=== PATIENT | male | born 1945 ===

== ENCOUNTER 2025-05-11 15:51 | Outpatient (AMB) | payer MEDICARE, SELFPAY ==
--- OUTSIDE RECORDS SUMMARY | 2025-05-11 16:13 | XMS_ITS | Encounter Summary ---
Author Organization [facility] Address [address] [facility] [address] [place] [address] Phone Care Team Providers Care Storm Chaser Name Role Phone Tracy John WELDING MACHINE OPERATOR GAS METAL ARC Primary Care Provider [phone] Encounter Details Date Type Department Care Team (Late Contact Info) Description 01/09/2023 Documentation Only [facility] [address] [facility] [address] [place] [phone] [place], [place] Social History Tobacco Use Types Packs/Day Years Used Date Smoking Tobacco: Never Smokeless Tobacco: Never Alcohol Use Standard Drinks/Week Comments Yes 0 (1 standard drink = 0.6 oz pure alcohol) Alcoholic Drinks/day: Occasional social drink Sex and Gender Information Value Date Recorded Sex Assigned at Male 08/29/2021 11:30 AM EST Legal Sex Male 5:19 PM EST Gender Identity Male 08/29/2021 11:30 AM EST Sexual Orientation Straight 08/29/2021 11 :30 AM EST COVID-19 Exposure Response Date Recorded In the last 10 days, have yo u been in contact with someone who was confirmed or suspected to have Coronavirus/COVID-19? No / Unsure 01/08/2023 6:17 PM EDT documented as of this encounter Plan of Treatment Upcoming Encounters Date Type Department Care Team (Late st Contact Info) Description 06/10/2025 1:15 PM EDT Office Visit [facility] [address] [facility] [address] [place] [phone] Pepper Nielsen ARNP [address] [phone] documented as of this encounter Visit Diagnoses Not on filedocumented in this encounter Care Teams Storm Chaser Relationship Specialty Start Date End Date Tracy John NP [address] [place] [address] PCP - General Nurse Practitioner 12/05/23 documented as of this encounter
--- OUTSIDE RECORDS SUMMARY | 2025-05-11 16:13 | XMS_ITS | Clinical Summary ---
Author Organization [facility] Address [address] [place] [address] Phone Care Team Providers Care Lehr Loader Name Role Phone Tracy John Primary Care Provider Allergies No known active allergies Social History Tobacco Use Types Packs/Day Years Used Date Smoking Tobacco: Never Assessed Sex and Gender Information Value Date Recorded Sex Assigned at Not on file Legal Sex Male 8:49 AM EDT Gender Identity Not on file Sexual Orientation Not on file Last Filed Vital Signs Vital Sign Reading Time Taken Comments Blood Pressure - - Pulse - - Temperature - - Respiratory Rate - - Oxygen Saturation - - Inhaled Oxygen Concentration - - Weight 77.7 kg (171 lb 3.2 oz) 01/19/2025 2:23 P M EDT Height 170.2 cm (5' 7 ) 01/19/2025 2:23 PM EDT Body Mass Index 26.81 01/19/2025 2:23 PM EDT Plan of Treatment Health Maintenance Due Date Last Done Comments Depression Screening 09/24/2024 COVID-19 Vaccine ( season) 2024 06/02/2024, 12/03/2023, 06/30/2023, Additional history exists Cholesterol Screening (Lipid Panel) 12/12/2024 Falls Risk Assessment 12/12/2024 Medicare Annual Wellness Visit 12/12/2024 Social Influencers of Health Screening 12/12/2024 Hypertension/CHF/CAD Annual BMP Blood Test 01/19/2025 Influenza Vaccine (#1) 2025 , 06/30/2023, 06/27/2022, Additional history exists DTaP,Tdap,and Td Vaccines (3 - Td or Tdap) 11/16/2025 11/16/2015, 09/12/2000 Pneumococcal Vaccine: 50+ Years Completed 03/17/2015, 11/22/2010 Zoster Vaccines Completed 07/08/2019, 02/11/2018 RSV Immunization Adult Patients Completed 07/07/2023 HIB Vaccines Aged Out No longer eligi ble based on patient's age to complete this topic HPV Vaccines Aged Out No longer eligi ble based on patient's age to complete this topic Hepatitis A Vaccines Aged Out No long er eligible based on patient's age to complete this topic Hepatitis B Vaccines Aged Out No long er eligible based on patient's age to complete this topic IPV Vaccines Aged Out No longer eligi ble based on patient's age to complete this topic MMR Vaccines Aged Out No longer eligi ble based on patient's age to complete this topic Meningococcal ACWY Vaccine Aged Out N o longer eligible based on patient's age to complete this topic Meningococcal B Vaccine Aged Out No l onger eligible based on patient's age to complete this topic RSV Immunization Patients Under 20 months Aged Out No longer eligible based on patient's age to complete this topic Varicella Vaccines Aged Out No longer eligible based on patient's age to complete this topic Insurance MEDICARE [facility] Care Teams Lehr Loader Relationship Specialty Start Date End Date Tracy John [address] [place] [address] PCP - General 12/18/24
--- OUTSIDE RECORDS SUMMARY | 2025-05-11 16:13 | XMS_ITS | Clinical Summary ---
Author Organization [facility] Address [address] [place] [phone] Phone Care Team Providers Care International Relations Teacher Name Role Phone Unknown, Unknown Primary Care Provider Aleksey matta Social History Tobacco Use Types Packs/Day Years Used Date Smoking Tobacco: Never Assessed Sex and Gender Information Value Date Recorded Sex Assigned at Not on file Legal Sex Male 5:41 PM EST Gender Identity Not on file Sexual Orientation Not on file Plan of Treatment Not on file Medical Devices Not on file [place] [id number] [employer] MEDEX SUPPLEMENT MEDICARE PART A & B [employer] MEDEX SUPPLEMENT MEDICARE PART A & B [employer] MEDEX SUPPLEMENT MEDICARE PART A & B [employer] MEDEX SUPPLEMENT MEDICARE PART A & B [employer] MEDEX SUPPLEMENT MEDICARE PART A & B [employer] MEDEX SUPPLEMENT MEDICARE PART A & B [employer] MEDEX SUPPLEMENT MEDICARE PART A & B [employer] MEDEX SUPPLEMENT MEDICARE PART A & B [employer] MEDEX SUPPLEMENT Care Teams International Relations Teacher Relationship Specialty Start Date End Date Unknown, Unknown, PCP - General 02/14/16 Additional Source Comments The information contained in this document represents components of the legal health record. It is not the complete legal health record.[facility]
== END 2025-05-11 15:53 | disposition home or self-care (01) ==
LOC: HO.HMGAL 15:51
PROVIDERS: PCP Internal Medicine; Visit Provider Registered Nurse Emergency
DX: J30.89 Other allergic rhinitis (principal)
CPT/HCPCS: 95117; 95165

== ENCOUNTER 2025-05-18 14:47 | Outpatient (AMB) | payer MEDICARE, SELFPAY ==
--- OUTSIDE RECORDS SUMMARY | 2025-05-18 16:28 | XMS_ITS | Encounter Summary ---
Author Organization [facility] Address [address] [facility] [address] [place] [address] Phone Care Team Providers Care Indian Trader Name Role Phone Tracy John TANK CAR REPAIRER Primary Care Provider [phone] Encounter Details Date Type Department Care Team (Late Contact Info) Description 03/24/2021 Orders Only [facility] [address] [facility] [address] [place] [phone] Caren Santos MD Stage 3a chronic kidney disease (HCC); Hypertensive disorder; Hypophosphatemia; Cyst of kidney Social History Tobacco Use Types Packs/Day Years Used Date Smoking Tobacco: Never Alcohol Use Standard Drinks/Week Comments [...] Exposure Response Date Recorded In the last month, have you been in contact with someone who was confirmed or suspected to have Coronavirus / COVID-19? No / Unsure 03/09/2021 12:13 PM EDT documented as of this encounter Plan of Treatment Upcoming Encounters Date Type Department Care Team (Late st Contact Info) Description 06/10/2025 1:15 PM EDT Office Visit [facility] [address] [facility] [address] [place] [phone] Pepper Nielsen ARNP [address] [phone] documented as of this encounter Visit Diagnoses Diagnosis Stage 3a chronic kidney disease (HCC) Hypertensive disorder Hypophosphatemia Cyst of kidney documented in this encounter Care Teams Indian Trader Relationship Specialty Start Date End Date Tracy John NP [address] [place] [address] PCP - General Nurse Practitioner 12/05/23 documented as of this encounter
--- OUTSIDE RECORDS SUMMARY | 2025-05-18 16:28 | XMS_ITS | Clinical Summary ---
Author Organization [facility] Address [address] [place] [address] Phone Care Team Providers Care Skin Specialist Name Role Phone Unknown, Unknown Primary Care [...] [place] [id number] [employer] MEDEX SUPPLEMENT MEDICARE PART A & B [employer] MEDEX SUPPLEMENT MEDICARE PART A & B [employer] MEDEX SUPPLEMENT MEDICARE PART A & B [employer] MEDEX SUPPLEMENT MEDICARE PART A & B [employer] MEDEX SUPPLEMENT MEDICARE PART A & B [employer] MEDEX SUPPLEMENT MEDICARE PART A & B [employer] MEDEX SUPPLEMENT MEDICARE PART A & B [employer] MEDEX SUPPLEMENT MEDICARE PART A & B [employer] MEDEX SUPPLEMENT Care Teams Skin Specialist Relationship Specialty Start Date End Date Unknown, Unknown, PCP - General 02/14/16 Additional Source Comments The information contained in this document represents components of the legal health record. It is not the complete legal health record.[facility]
--- OUTSIDE RECORDS SUMMARY | 2025-05-18 16:28 | XMS_ITS | Clinical Summary ---
Author Organization [facility] Address [address] [place] [address] Phone Care Team Providers Care Climatology Professor Name Role Phone Tracy John Primary Care [...] age to complete this topic Insurance MEDICARE [facility] Care Teams Climatology Professor Relationship Specialty Start Date End Date Tracy John [address] [place] [address] PCP - General 12/18/24
--- OUTSIDE RECORDS SUMMARY | 2025-05-18 16:28 | XMS_ITS | Encounter Summary ---
Author Organization [facility] Address [address] [facility] [address] [place] [address] Phone Care Team Providers Care Aerospace Assembler Name Role Phone Tracy John MECHANICAL ASSEMBLER Primary Care Provider [phone] Encounter Details Date Type Department Care Team (Late Contact Info) Description 01/09/2023 Documentation Only [facility] [address] [facility] [address] [place] [phone] [place], [place] Social History Tobacco Use Types Packs/Day [...] Visit [facility] [address] [facility] [address] [place] [phone] Pepper Nielsen ARNP [address] [phone] documented as of this encounter Visit Diagnoses Not on filedocumented in this encounter Care Teams Aerospace Assembler Relationship Specialty Start Date End Date Tracy John NP [address] [place] [address] PCP - General Nurse Practitioner 12/05/23 documented as of this encounter
--- OUTSIDE RECORDS SUMMARY | 2025-05-18 16:28 | XMS_ITS | Encounter Summary ---
Author Organization [facility] Address [address] [address] Phone Care Team Providers Care Skein Bander Name Role Phone Tracy John SOCK TURNER Primary Care Provider [phone] Encounter Details Date Type Department Care Team (Late Contact Info) Description 04/15/2025 Office Communication [facility] [address] [phone] Raymond Lynch [address] [phone] Social History Tobacco Use Types Packs/Day Years [...] Orientation Straight 08/29/2021 11 :30 AM EST documented as of this encounter Plan of Treatment Upcoming Encounters Date Type Department Care Team (Late st Contact Info) Description 06/10/2025 1:15 PM EDT Office Visit [facility]. [address] [phone] Pepper Nielsen ARNP [address] [address] documented as of this encounter Visit Diagnoses Not on filedocumented in this encounter Care Teams Skein Bander Relationship Specialty Start Date End Date Tracy John NP [address] [place] [address] PCP - General Nurse Practitioner 12/05/23 documented as of this encounter
--- OUTSIDE RECORDS SUMMARY | 2025-05-18 16:28 | XMS_ITS | Clinical Summary ---
Author Organization [facility] Address [address] [address] Phone Care Team Providers Care Automotive Exhaust Emissions Technician Name Role Phone AlvaroTracy cooper IRONING PLEATER Primary Care Provider [phone] Allergies No known active allergies Medications Multiple Vitamins-Minera ls (CENTRUM SILVER 50+MEN PO) Take 1 tablet by mouth 1 (one) time each day Active acetaminophen (TYLENOL) 500 MG tablet Take 2 tablets by mouth every morning Active finasteride (PROSCAR) 5 MG tablet Take 5 mg by mouth daily 1 Active irbesartan-hydr oCHLOROthiazide (AVALIDE) 300-12.5 MG per tablet Take 1 tablet by mouth 1 (one) time each day 1 Active pravastatin (PRAVACHOL) 20 MG tablet Take 20 mg by mouth daily 0 Active tamsulosin (FLOMAX) 0.4 MG 24 hr capsule Take 0.4 mg by mouth 1 (one) time each day 1 Active omega-3 (FISH OIL) 1000 MG capsule 1 Active sodium chloride (OCEAN) 0.65 % nasal spray Administer 1 spray into each nostril if needed for congestion Active famotidine (PEPCID) 20 MG tablet Take 1 tablet (20 mg total) by mouth in the morning and 1 tablet (20 mg total) in the evening. 60 tablet 11 4 Active amLODIPine (NORVASC) 10 MG tabletIndicatio ns:Stage 3a chronic kidney disease (HCC),Hypertens ion Take 1 tablet (10 mg total) by mouth 1 (one) time each day 90 tablet 3 5 12/09/19 26 Active Active Problems Problem Noted Date Diagnosed Date Chronic headache disorder 04/20/2022 Dyspepsia 04/20/2022 Hypophosphatemia 11/07/2020 Cyst of kidney 11/03/2020 Hypertension 11/03/2020 Aortic valve stenosis 11/03/2020 Hyperlipidemia 06/18/2014 Essential hypertension 12/30/2012 Stage 3a chronic kidney disease 09/01/2010 Overview (12/07/2022): Per chart review meets GFR criteria Benign prostatic hyperplasia 12/04/2008 Encounters Date Type Department Care Team Description 04/24/2025 Orders Only [facility] [address] [place] [phone] Pepper Nielsen ARNP Stage 3a chronic kidney disease (HCC); Hypertension 04/15/2025 Office Communication [facility] [address] [phone] Raymond Lynch from Last 3 Months Immunizations Immunization Administration Dates Next Due DT 09/12/2000 Influenza Split High Dose Pr eservative Free IM 05/15/2020,06/30/2015 Influenza, Unspecified 06/27/2022,2020,06/13/2017,08/23,06/19/2015,07/17/2014,07/24/2013 ,06/15/2010,06/09/2009 Moderna SARS-COV-2 03/25/2022 Pfizer SARS-COV-2 06/20/2021,11/19/2020,10/30/19 Pneumococcal Conjugate 13-Valent 03/17/2015 Pneumococcal Polysaccharide 11/22/2010 SARS-CoV-2, Unspecified 06/27/2022 Shingrix 02/11/2018 Tdap 11/16/2015 Family History Medical History Relation Comments Cancer Father Gout Father Heart disease Mother Hypertension Mother Relation Status Comments Father Mother Social History Tobacco Use Types Packs/Day Years Used Date Smoking Tobacco: Never Smokeless Tobacco: Never Tobacco Cessation:Counseling Given: No Alcohol Use Standard Drinks/Week Comments Yes 0 (1 standard drink = 0.6 oz pure alcohol) Alcoholic Drinks/day: Occasional social drink Sex and Gender Information Value Date Recorded Sex Assigned at Male 08/29/2021 11:30 AM EST Legal Sex Male 5:19 PM EST Gender Identity Male 08/29/2021 11:30 AM EST Sexual Orientation Straight 08/29/2021 11 :30 AM EST Last Filed Vital Signs Vital Sign Reading Time Taken Comments Blood Pressure 130/62 12/08/2024 1:36 PM EDT Pulse 80 12/08/2024 1:36 PM EDT Temperature - - Respiratory Rate - - Oxygen Saturation 97% 05/29/2023 3:27 PM EDT Inhaled Oxygen Concentration - - Weight 77.1 kg (170 lb) 12/08/2024 1:36 PM EDT Height 172.7 cm (5' 8 ) 05/29/2023 3:27 PM EDT Body Mass Index 25.85 05/29/2023 3:27 PM EDT Plan of Treatment Upcoming Encounters Date Type Department Care Team (Late st Contact Info) Description 06/10/2025 1:15 PM EDT Office Visit [facility] [address] [phone] Pepper Nielsen ARNP [address] [phone] Health Maintenance Due Date Last Done Comments Influenza Vaccine (#1) 2025 2, 06/14/2021, 05/15/2020, Additional history exists Pneumococcal Vaccine: 50+ Years Completed 03/17/2015, 11/22/2010 Pneumococcal Vaccine: Peds (0 to 5 Years) and At-Risk Patients (6 to 49 Years) Discontinued 03/17/2015, 11/22/2010 Hepatitis B Vaccine Aged Out No longe r eligible based on patient's age to complete this topic Insurance [facility] Medicare [facility] Medicare Care Teams Automotive Exhaust Emissions Technician Relationship Specialty Start Date End Date Tracy John NP [address] [place] [address] PCP - General Nurse Practitioner 12/05/23
== END 2025-05-19 13:50 | disposition home or self-care (01) ==
PROVIDERS: PCP Internal Medicine; Visit Provider Registered Nurse Emergency
DX: J30.89 Other allergic rhinitis (principal)
CPT/HCPCS: 95117; 95165

== ENCOUNTER 2025-05-27 09:21 | Outpatient (AMB) | payer MEDICARE, SELFPAY ==
--- OUTSIDE RECORDS SUMMARY | 2025-05-25 23:59 | XMS_ITS | Continuity of Care Document ---
Author Organization [facility] Address [address] [facility] [place] [address]- Care Team Providers Care Crew Caller Name Role Phone Tracy John NP Primary Care Physician Encounter 05/18/25 - 05/25/25 [facility] [address] [facility] [facility], [address] [place] [address]- Attending Physician: Indio Gomez MD Admitting Physician: Indio Gomez MD Referring Physician: Indio Gomez MD Encounter Type: OutPatient One Time Allergies, Adverse Reactions, Alerts No Known Allergies Immunizations Given and Recorded Vaccine Date Status Refusal Reason influenza virus vaccine, inactivated 06/02/24 Todd rded influenza virus vaccine, inactivated 06/30/23 Todd rded influenza virus vaccine, inactivated 06/27/22 Todd rded influenza virus vaccine, inactivated 06/14/21 Todd rded influenza virus vaccine, inactivated 1 06/13/17 Gi nicholas influenza virus vaccine, inactivated 2 08/23/16 Gi nicholas influenza virus vaccine, inactivated 3 06/19/15 Re corded influenza virus vaccine, inactivated 4 07/17/14 Gi nicholas influenza virus vaccine, inactivated 5 07/24/13 Gi nicholas influenza virus vaccine, inactivated 07/10/12 Give n influenza virus vaccine, inactivated 06/29/11 Give n influenza virus vaccine, inactivated 6 06/15/10 Gi nicholas influenza virus vaccine, inactivated 7 06/09/09 Gi nicholas SARS-CoV-2(COVID-19)mRNA-LNP vac([id number]) 06/02/24 Recorded SARS-CoV-2(COVID-19)mRNA-LNP vac([id number]) 12/03/23 Recorded SARS-CoV-2(COVID-19)mRNA-LNP vac([id number]) 06/30/23 Recorded RSV vaccine preF3, recombinant 07/07/23 Recorded [id number] 12y+ bivalent booster vax 8 06/27/22 Recorded SARS-CoV-2 (COVID-19) mRNA-1273 vaccine 03/25/22 R ecorded SARS-CoV-2 (COVID-19) mRNA BNT-162b2 vac 06/20/21 Recorded SARS-CoV-2 (COVID-19) mRNA BNT-162b2 vac 11/19/20 Recorded SARS-CoV-2 (COVID-19) mRNA BNT-162b2 vac 10/30/20 Recorded Influenza Virus Vaccine (oldterm) 9 05/15/20 Recor ded Influenza Virus Vaccine (oldterm) 07/08/19 Recorde d zoster vaccine, inactivated 07/08/19 Recorded zoster vaccine, inactivated 02/11/18 Recorded tetanus/diphtheria/pertussis, acel(Tdap) 10 11/16/15 Given Fluzone (oldterm) 11 06/19/15 Recorded pneumococcal 13-valent vaccine 03/17/15 Given pneumococcal 23-valent vaccine 11/22/10 Given influ virus vac, H1N1, inactive(oldterm) 06/24/09 Given Influenza Inactive (IM) (oldterm) 06/24/09 Given Influenza Inactive (IM) (oldterm) 07/25/08 Given Influenza Inactive (IM) (oldterm) 08/30/07 Given diphtheria-tetanus toxoids (DT) 09/12/00 Given 1Result Comment: [facility] [phone] 2Result Comment: [08/24/2016] [facility] 3[facility] 4Result Comment: [facility]03/17/2015[facility] 5Admin Note: pharmacy 6Admin Note: VIS SHEET GIVEN 05/03/2010 7Admin Note: vis 05/04/09 8Result Comment: administered at [facility] 9Result Comment: Vishal 10Result Comment: [11/16/2015] [facility] 11Location History: [facility] Medications acetaminophen 500 mg oral tablet 2 tablet = 1,000 mg, By Mouth, Every 6 hours, 0 Refills, Maintenance, 06/28/18 1:47:55 PM EDT Start Date: 06/28/18 Status: Ordered Medication Dispense Status: Completed Total Allowed Fills: 1 Fills Dispensed: 0 amLODIPine 2.5 mg oral tablet 2.5 mg, 1, tablet, By Mouth, Daily, # 30 tablet, Refills 0, Maintenance, 10/16/18 1:54:53 PM EST Start Date: 10/16/18 Status: Ordered Medication Dispense Status: Completed Quantity: 30.0 Unit: tablet Total Allowed Fills: 1 Fills Dispensed: 0 betamethasone topical dipropionate 0.05% cream See Instructions, TOPICALLY 2 TIMES A DAY, # 45 Gm, 0 Refills, Maintenance, 03/02/25 7:52:00 AM EDT, [facility], 30, TOPICALLY 2 TIMES A DAY, 169, cm, 12/03/24 10:55:00 EDT, Height Start Date: 03/02/25 Status: Ordered Medication Dispense Status: Completed Quantity: 45.0 Unit: g Total Allowed Fills: 1 Fills Dispensed: 0 cetirizine 10 mg oral tablet 1 tablet = 10 mg, By Mouth, Daily, # 30 tablet, 0 Refills, Maintenance, 02/01/22 3:07:00 PM EDT, Tablet, Partial fill upon patient request if the prescription is for a schedule II opioid drug. Start Date: 02/01/22 Status: Ordered Medication Dispense Status: Completed Quantity: 30.0 Unit: tablet Total Allowed Fills: 1 Fills Dispensed: 0 famotidine 20 mg oral tablet Refills 0, Maintenance, 07/25/23 4:20:00 PM EDT, Partial fill upon patient request if the prescription is for a schedule II opioid drug. Start Date: 07/25/23 Status: Ordered Medication Dispense Status: Completed Total Allowed Fills: 1 Fills Dispensed: 0 finasteride 5 mg oral tablet 1 tablet = 5 mg, By Mouth, Daily, # 30 tablet, 0 Refills, Maintenance, 01/21/14 1:26:09 PM EDT, Tablet Start Date: 01/21/14 Status: Ordered Medication Dispense Status: Completed Quantity: 30.0 Unit: tablet Total Allowed Fills: 1 Fills Dispensed: 0 Fish Oil take, By Mouth, Daily, 0 Refills, Maintenance, 12/01/20 4:15:00 PM EST, Partial fill upon patient request if the prescription is for a schedule II opioid drug. Start Date: 12/01/20 Status: Ordered Medication Dispense Status: Completed Total Allowed Fills: 1 Fills Dispensed: 0 Flomax 0.4 mg oral capsule 0.4 mg, 1, capsule, By Mouth, Daily, (30 minutes after the same meal), # 30, 0 Refills Start Date: 12/04/08 Status: Ordered Medication Dispense Status: Completed Quantity: 30.0 Unit: Total Allowed Fills: 1 Fills Dispensed: 0 hydrochlorothiazide-irbesartan 12.5 mg-300 mg oral tablet 1 tablet, By Mouth, Daily, # 90 tablet, 1 Refills, Maintenance, 01/26/25 9:37:00 PM EDT, [facility]ORE 61034, 90, TAKE 1 TABLET BY MOUTH EVERY DAY, 169, cm, 12/03/24 10:55:00 EDT, Height Start Date: 01/26/25 Status: Ordered Medication Dispense Status: Completed Quantity: 90.0 Unit: tablet Total Allowed Fills: 1 Fills Dispensed: 0 Multivitamin By Mouth, Daily, 0 Refills, Maintenance, 05/26/15 8:44:13 AM EDT Start Date: 05/26/15 Status: Ordered Medication Dispense Status: Completed Total Allowed Fills: 1 Fills Dispensed: 0 pravastatin 20 mg oral tablet 1, tablet, By Mouth, Daily, # 90 tablet, Refills 1, Tot. Refills 1, Maintenance, 02/24/25 9:45:00 PM EDT, Route to Pharmacy Electronically, [facility]/pharmacy #[id number], 169, cm, 12/03/24 10:55:00 EDT, Height Start Date: 02/24/25 Status: Ordered Medication Dispense Status: Completed Quantity: 90.0 Unit: tablet Total Allowed Fills: 2 Fills Dispensed: 0 Problem List Condition Confirmation Course Effective Dates Status H ealth Status Informant Chronic allergic rhinitis Confirmed Active Aortic stenosis, mild 1 Confirmed 03/04/20 Active Aortic valve stenosis Confirmed Active BPH (benign prostatic hyperplasia) Confirmed 12/04/08 Active Chronic headache Confirmed Active Chronic kidney disease, stage 3a 2 Confirmed 09/01/10 Active Dyspepsia Confirmed Active Gout NOS Confirmed 06/29/11 Active HTN (hypertension) Confirmed Active Hyperlipidemia NOS Confirmed Active Left atrial dilatation mild Confirmed Active Mild aortic stenosis Confirmed Active Osteoarthritis Confirmed Active Tear of rotator cuff Confirmed Active AV area 1.57 cm2 2Per chart review meets GFR criteria Results Radiology Reports * Exam Date Time Procedure Performing Provider Status 05/18/25 2:05 PM US Renal Bladder Modified Notes: (US Renal Bladder) Reason For Exam: bph with lower urinary tract symp RESULT: US Renal Bladder US Renal Bladder INDICATION: 80 years old Male with Reason: bph with lower urinary tract symp. COMPARISON: Renal ultrasound 11/23/2017 through 11/13/2024. IMAGING TECHNIQUE: Grayscale and color Doppler ultrasound evaluation of the kidneys and bladder is performed. FINDINGS: Right kidney: 10.3 cm in length. No hydronephrosis. No evidence of calculus. Approximately seven cysts are noted only one, the largest one measuring 4.8 x 2.6 x 4.2 cm in the upper pole, exhibiting thin septations, clearly benign, at the most a Bosniak II cyst. A parapelvic cyst is also noted. Normal echogenicity. No perinephric collections. Left kidney: 11.8 cm in length. No hydronephrosis. No evidence of calculus. Approximately five simple cortical cysts noted the largest in the interpolar region measuring 4 x 2.7 x 4.2 cm. One exhibits a thin septation measuring up to 2.8 cm, a Bosniak II cyst. A parapelvic cyst is also noted. Normal echogenicity. No perinephric collections. Bladder: Normal. No stone, mass, wall thickening or debris. The calculated volume is 387 cc. There is a large postvoid residual of 275 cc. Bilateral ureteral jets are not seen. Prostate gland: Prostate gland is mild to moderately enlarged with a calculated volume of 57 cc. Indentation of the bladder base by the enlarged prostate gland noted. IMPRESSION: 1. Multiple bilateral renal cysts one in each kidney with thin septations. No need for follow-up. Normal renal size. No hydronephrosis. 2. Unremarkable urinary bladder. 3. Large postvoid residual. 4. Mild to moderate prostatic enlargement. Thank you for allowing me to participate in the care of this patient. WSN: [id number] Ordering Physician: Indio Gomez Dictated By: Nicola Doshi MD Dictated Date/Time: 05/19/25 10:45 a Reviewed By: Nicola Doshi MD Signed By: Nicola Doshi MD Signed Date/Time: 05/19/25 10:45 am Transcribed By: LESLEY Transcribed Date/Time: 05/19/25 10:41 am Social History Social History Type Response Smoking Status Never smoker entered on: 03/17/15 Sex Sex Representation Male (finding) Patient Care team information Care Team Personnel Name: Emily Cai Position: [facility] Outreach Member Role: Lifetime Consulting Physician Name: Tracy John NP Position: [facility] PCO Associate Professional Member Role: PCP Address: [address] [place] [address]- Telecom: Name: Indio Gomez MD Position: [facility] Physician - Urology Med Service: Urology Member Role: Ordering Physician Address: [address] [place] [address] [place] [address]- Telecom: Care Team Related Persons Name: ANDI LOWE Name: OPAL NEWTON Insurance Providers Guarantor name: ARIEL LOWE [facility] Information #: 1 Payer: MEDICARE B Payer Identifier: NA Member Number: [id number] Group Number: Subscriber Identifier: [id number] Relationship to Subscriber: self Coverage Type: NA Coverage Verification Date: NA Telecom: NA Address: Health Plan Information #: 2 Payer: MEDEX SECONDARY ONLY Payer Identifier: NA Member Number: [id number] Group Number: NA Subscriber Identifier: [id number] Relationship to Subscriber: self Coverage Type: Medicare Other Coverage Verification Date: NA Telecom: NA Address:
--- OUTSIDE RECORDS SUMMARY | 2025-05-27 10:05 | XMS_ITS | Clinical Summary ---
Author Organization [facility] Address [address] [address] Phone Care Team Providers Care Hotel Controller Name Role Phone AlvaroTracy cooper TRANSPORTATION PLANNING TECHNICIAN Primary Care Provider [phone] Allergies No known active allergies Medications Multiple [...] Orders Only [facility] [address] [place] [phone] Pepper Nielsen ARNP Stage 3a chronic kidney disease (HCC); Hypertension 04/15/2025 Office Communication [facility] [address] [phone] Raymond Lynch from Last 3 Months Immunizations [...] Office Visit [facility] [address] [address] Pepper Nielsen ARNP [address] [phone] Health Maintenance Due Date Last Done Comments Influenza Vaccine (#1) 2025 2, 06/14/2021, 05/15/2020, Additional history exists Pneumococcal Vaccine: 50+ Years Completed 03/17/2015, 11/22/2010 Pneumococcal Vaccine: Peds (0 to 5 Years) and At-Risk Patients (6 to 49 Years) Discontinued 03/17/2015, 11/22/2010 Hepatitis B Vaccine Aged Out No longe r eligible based on patient's age to complete this topic Insurance [facility] Medicare [facility] Medicare Care Teams Hotel Controller Relationship Specialty Start Date End Date Tracy John NP [address] [place] [address] PCP - General Nurse Practitioner 12/05/23
--- OUTSIDE RECORDS SUMMARY | 2025-05-27 10:05 | XMS_ITS | Encounter Summary ---
Author Organization [facility] Address [address] [facility] [address] [place] [address] Phone Care Team Providers Care Cloth Weigher Name Role Phone Tracy John POSTING MACHINE OPERATOR Primary Care Provider [phone] Encounter Details Date Type Department Care Team (Late Contact Info) Description 03/24/2021 Orders Only [facility] [place] [address] [facility] [address] [place] [phone] Caren Santos MD Stage 3a chronic kidney [...] Office Visit [facility] [address] [facility] [address] [place] [phone] Pepper Nielsen ARNP [address] [phone] documented as of this encounter Visit Diagnoses Diagnosis Stage 3a chronic kidney disease (HCC) Hypertensive disorder Hypophosphatemia Cyst of kidney documented in this encounter Care Teams Cloth Weigher Relationship Specialty Start Date End Date Tracy John NP [address] [place] [address] PCP - General Nurse Practitioner 12/05/23 documented as of this encounter
--- OUTSIDE RECORDS SUMMARY | 2025-05-27 10:05 | XMS_ITS | Clinical Summary ---
Author Organization [facility] Address [address] [place] [address] Phone Care Team Providers Care Machine Shop Lead Man Name Role Phone Unknown, Unknown Primary Care [...] [place] [id number] [employer] MEDEX SUPPLEMENT MEDICARE PART A & B [employer] MEDEX SUPPLEMENT MEDICARE PART A & B [employer] MEDEX SUPPLEMENT MEDICARE PART A & B [employer] MEDEX SUPPLEMENT MEDICARE PART A & B [employer] MEDEX SUPPLEMENT MEDICARE PART A & B [employer] MEDEX SUPPLEMENT MEDICARE PART A & B [employer] MEDEX SUPPLEMENT MEDICARE PART A & B [employer] MEDEX SUPPLEMENT MEDICARE PART A & B [employer] MEDEX SUPPLEMENT Care Teams Machine Shop Lead Man Relationship Specialty Start Date End Date Unknown, Unknown, PCP - General 02/14/16 Additional Source Comments The information contained in this document represents components of the legal health record. It is not the complete legal health record.[facility]
--- OUTSIDE RECORDS SUMMARY | 2025-05-27 10:05 | XMS_ITS | Clinical Summary ---
Author Organization [address] [facility] Address [address] [place] [address] Phone Care Team Providers Care Consulting Sme Name Role Phone Tracy John Primary Care Provider [phone] Allergies No known active allergies Social History [...] Date Last Done Comments Depression Screening 09/24/2024 Cholesterol Screening (Lipid Panel) 12/12/2024 Falls Risk Assessment 12/12/2024 Medicare Annual Wellness Visit 12/12/2024 Social Influencers of Health Screening 12/12/2024 Hypertension/CHF/CAD Annual BMP Blood Test 01/19/2025 COVID-19 Vaccine ( season) 2025 06/02/2024, 12/03/2023, 06/30/2023, Additional history exists Influenza Vaccine (#1) 2025 , 06/30/2023, 06/27/2022, [...] age to complete this topic Insurance MEDICARE [facility] Care Teams Consulting Sme Relationship Specialty Start Date End Date Tracy John [address] [place] [address] PCP - General 12/18/24
--- OUTSIDE RECORDS SUMMARY | 2025-05-27 10:05 | XMS_ITS | Encounter Summary ---
Author Organization [facility] Address [address] [address] Phone Care Team Providers Care Dough Mixer Operator Name Role Phone Tracy John TECHNICAL CUSTOMER SUPPORT SPECIALIST Primary Care Provider [phone] Encounter Details Date Type Department Care Team (Late Contact Info) Description 04/15/2025 Office Communication [facility] [address] [phone] Raymond Lynch [address] [phone] Social History Tobacco Use Types [...] Office Visit [facility]. [address] [phone] Pepper Nielsen ARNP [address] [phone] documented as of this encounter Visit Diagnoses Not on filedocumented in this encounter Care Teams Dough Mixer Operator Relationship Specialty Start Date End Date Tracy John NP [address] [place] [address] PCP - General Nurse Practitioner 12/05/23 documented as of this encounter
--- OUTSIDE RECORDS SUMMARY | 2025-05-27 10:05 | XMS_ITS | Encounter Summary ---
Author Organization [facility] [place] Address [address] [facility] [address] [place] [address] Phone Care Team Providers Care Curriculum Specialist Name Role Phone Tracy John STATION CHIEF Primary Care Provider Encounter Details Date Type Department Care Team (Late Contact Info) Description 01/09/2023 Documentation Only [facility] [address] [facility] [address] [place] [phone] [place], [place] Social History Tobacco Use Types Packs/Day [...] Visit [facility] 3550 [facility] [address] [place] [phone] Pepper Nielsen ARNP [address] [phone] documented as of this encounter Visit Diagnoses Not on filedocumented in this encounter Care Teams Curriculum Specialist Relationship Specialty Start Date End Date Tracy John NP [address] [place] [address] PCP - General Nurse Practitioner 12/05/23 documented as of this encounter
== END 2025-05-27 10:50 | disposition home or self-care (01) ==
LOC: HO.HMGAL 09:21
PROVIDERS: PCP Internal Medicine; Visit Provider Registered Nurse Emergency
DX: J30.89 Other allergic rhinitis (principal)
CPT/HCPCS: 95117; 95165

== ENCOUNTER 2025-06-01 08:47 | Outpatient (AMB) | payer MEDICARE, SELFPAY ==
--- OUTSIDE RECORDS SUMMARY | 2025-06-01 09:48 | XMS_ITS | Clinical Summary ---
Author Organization [facility] Address [address] [place] [address] Phone Care Team Providers Care Leather Belt Shaper Name Role Phone Unknown, Unknown Primary Care [...] [place] [id number] [employer] MEDEX SUPPLEMENT MEDICARE PART A & B [employer] MEDEX SUPPLEMENT MEDICARE PART A & B [employer] MEDEX SUPPLEMENT MEDICARE PART A & B [employer] MEDEX SUPPLEMENT MEDICARE PART A & B [employer] MEDEX SUPPLEMENT MEDICARE PART A & B [employer] MED[employer] SUPPLEMENT MEDICARE PART A & B [employer] MEDEX SUPPLEMENT MEDICARE PART A & B [employer] MEDEX SUPPLEMENT MEDICARE PART A & B [employer] MEDEX SUPPLEMENT Care Teams Leather Belt Shaper Relationship Specialty Start Date End Date Unknown, Unknown, PCP - General 02/14/16 Additional Source Comments The information contained in this document represents components of the legal health record. It is not the complete legal health record.[facility]
--- OUTSIDE RECORDS SUMMARY | 2025-06-01 09:49 | XMS_ITS | Clinical Summary ---
Author Organization [facility] Address [address] [place] [address] Phone Care Team Providers Care Commercial Relief Driver Name Role Phone Tracy John Primary Care Provider [phone] Allergies No known active allergies Social History [...] age to complete this topic Insurance MEDICARE [facility] Care Teams Commercial Relief Driver Relationship Specialty Start Date End Date Tracy John [address] [place] [address] PCP - General 12/18/24
--- OUTSIDE RECORDS SUMMARY | 2025-06-01 09:49 | XMS_ITS | Encounter Summary ---
Author Organization [facility] [place] Address [address] [facility] [address] [place] [address] Phone Care Team Providers Care Insurance Loss Adjuster Name Role Phone Tracy John DIAMOND SELECTOR Primary Care Provider [phone] Encounter Details Date Type Department Care Team (Late Contact Info) Description 03/24/2021 Orders Only [facility] [address] [facility] [address] [place] [phone] Caren Santos MD Stage 3a chronic kidney [...] Office Visit [facility] [address]50 [facility] 204 [place] [phone] Pepper Nielsen ARNP [address] [phone] documented as of this encounter Visit Diagnoses Diagnosis Stage 3a chronic kidney disease (HCC) Hypertensive disorder Hypophosphatemia Cyst of kidney documented in this encounter Care Teams Insurance Loss Adjuster Relationship Specialty Start Date End Date Tracy John NP [address] [place] [address] PCP - General Nurse Practitioner 12/05/23 documented as of this encounter
--- OUTSIDE RECORDS SUMMARY | 2025-06-01 09:49 | XMS_ITS | Encounter Summary ---
Author Organization [facility] Address [address] [address] Phone Care Team Providers Care Golf Club Head Inspector And Adjuster Name Role Phone Tracy John TRENCH TRIMMER FINE Primary Care Provider [phone] Encounter Details Date Type Department Care Team (Late Contact Info) Description 04/15/2025 Office Communication [facility] [address] [phone] Raymond Lynch [address] [phone] Social History Tobacco Use Types [...] Office Visit [facility]. [address] [address] Pepper Nielsen ARNP [address] [phone] documented as of this encounter Visit Diagnoses Not on filedocumented in this encounter Care Teams Golf Club Head Inspector And Adjuster Relationship Specialty Start Date End Date Tracy John NP [address] [place] [address] PCP - General Nurse Practitioner 12/05/23 documented as of this encounter
--- OUTSIDE RECORDS SUMMARY | 2025-06-01 09:49 | XMS_ITS | Encounter Summary ---
Author Organization [facility] Address [address] [facility] [address] [place] [address] Phone Care Team Providers Care Striping Machine Operator Name Role Phone Tracy John LIQUOR ESTABLISHMENT MANAGER Primary Care Provider [phone] Encounter Details Date Type Department Care Team (Late Contact Info) Description 01/09/2023 Documentation Only [facility] [address] [facility] [address] [place] [phone] [place], [place] Social History Tobacco Use Types Packs/Day [...] Visit [facility] 3550 [facility] [address] [place] [phone] Pepper Nielsen ARNP [address] [address] documented as of this encounter Visit Diagnoses Not on filedocumented in this encounter Care Teams Striping Machine Operator Relationship Specialty Start Date End Date Tracy John NP [address] [place] [address] PCP - General Nurse Practitioner 12/05/23 documented as of this encounter
--- OUTSIDE RECORDS SUMMARY | 2025-06-01 09:49 | XMS_ITS | Clinical Summary ---
Author Organization [facility] Address [address] [address] Phone Care Team Providers Care Foundation Drill Operator Name Role Phone AlvaroTracy cooper TONE ARTIST APPRENTICE Primary Care Provider [phone] Allergies No known active allergies Medications Multiple [...] Orders Only [facility] [address] [place] [phone] Pepper Nielsen ARNP Stage 3a chronic kidney disease (HCC); Hypertension 04/15/2025 Office Communication [facility] [address] [phone] Raymond Lynch from Last 3 Months Immunizations [...] Office Visit [facility] [address] [address] Pepper Nielsen ARNP [address] [phone] Health Maintenance Due Date Last Done Comments Influenza Vaccine (#1) 2025 2, 06/14/2021, 05/15/2020, Additional history exists Pneumococcal Vaccine: 50+ Years Completed 03/17/2015, 11/22/2010 Pneumococcal Vaccine: Peds (0 to 5 Years) and At-Risk Patients (6 to 49 Years) Discontinued 03/17/2015, 11/22/2010 Hepatitis B Vaccine Aged Out No longe r eligible based on patient's age to complete this topic Insurance [facility] Medicare [facility] Medicare Care Teams Foundation Drill Operator Relationship Specialty Start Date End Date Tracy John NP [address] [place] [address] PCP - General Nurse Practitioner 12/05/23
== END 2025-06-01 08:55 | disposition home or self-care (01) ==
LOC: HO.HMGAL 08:47
PROVIDERS: PCP Internal Medicine; Visit Provider Registered Nurse Emergency
DX: J30.89 Other allergic rhinitis (principal)
CPT/HCPCS: 95117; 95165

== ENCOUNTER 2025-06-08 15:53 | Outpatient (AMB) | payer MEDICARE, SELFPAY ==
--- OUTSIDE RECORDS SUMMARY | 2025-06-08 21:10 | XMS_ITS | Encounter Summary ---
Author Organization [facility] Address [address] [address] Phone Care Team Providers Care Windows Server Architect Name Role Phone Tracy John CENTER DIRECTOR Primary Care Provider [phone] Encounter Details Date Type Department Care Team (Late Contact Info) Description 04/15/2025 Office Communication [facility]. [address] [phone] Raymond Lynch [address] [address] Social History Tobacco Use Types [...] Visit [facility]. [address] [phone] Pepper Nielsen ARNP [address] [address] documented as of this encounter Visit Diagnoses Not on filedocumented in this encounter Care Teams Windows Server Architect Relationship Specialty Start Date End Date Tracy John NP [address] [place] [address] PCP - General Nurse Practitioner 12/05/23 documented as of this encounter
--- OUTSIDE RECORDS SUMMARY | 2025-06-08 21:10 | XMS_ITS | Clinical Summary ---
Author Organization 175 [facility] Address [address] [place] [address] Phone Care Team Providers Care Injection Molding Operator Name Role Phone Tracy John Primary Care Provider [phone] Allergies No known active allergies Social History [...] Insurance MEDICARE [facility] Care Teams Injection Molding Operator Relationship Specialty Start Date End Date Tracy John [address] [place] [address] PCP - General 12/18/24
--- OUTSIDE RECORDS SUMMARY | 2025-06-08 21:10 | XMS_ITS | Encounter Summary ---
Author Organization [facility] [place] Address [address] [facility] 200 [place] [address] Phone Care Team Providers Care Truck Rental Clerk Name Role Phone Tracy John ROOM INSPECTOR Primary Care Provider [phone] Encounter Details Date Type Department Care Team (Late Contact Info) Description 03/24/2021 Orders Only [facility] [place] [address] [facility] [address] [place] [phone] Caren Santos MD Stage 3a chronic kidney [...] Office Visit [facility] 3550 [facility] 204 [place] [phone] Pepper Nielsen ARNP [address] [phone] documented as of this encounter Visit Diagnoses Diagnosis Stage 3a chronic kidney disease (HCC) Hypertensive disorder Hypophosphatemia Cyst of kidney documented in this encounter Care Teams Truck Rental Clerk Relationship Specialty Start Date End Date Tracy John NP [address] [place] [address] PCP - General Nurse Practitioner 12/05/23 documented as of this encounter
--- OUTSIDE RECORDS SUMMARY | 2025-06-08 21:10 | XMS_ITS | Clinical Summary ---
Author Organization [facility] Address [address] [address] Phone Care Team Providers Care Circuit Court Clerk Name Role Phone AlvaroTracy cooper SENIOR ACCOUNTS PAYABLE SPECIALIST Primary Care Provider [phone] Allergies No known active allergies Medications Multiple [...] Orders Only [facility] [address] [place] [phone] Pepper Nielsen ARNP Stage 3a chronic kidney disease (HCC); Hypertension 04/15/2025 Office Communication [facility]. [facility] [address] [phone] Raymond Lynch from Last 3 Months Immunizations [...] Office Visit [facility] [address] [phone] Pepper Nielsen ARNP [address] [phone] Health Maintenance Due Date Last Done Comments Influenza Vaccine (#1) 2025 2, 06/14/2021, 05/15/2020, Additional history exists Pneumococcal Vaccine: 50+ Years Completed 03/17/2015, 11/22/2010 Pneumococcal Vaccine: Peds (0 to 5 Years) and At-Risk Patients (6 to 49 Years) Discontinued 03/17/2015, 11/22/2010 Hepatitis B Vaccine Aged Out No longe r eligible based on patient's age to complete this topic Procedures Procedure Name Priority Date/Time Associated Diagnosis Comments MAGNESIUM Routine 06/01/2025 8:04 AM EDT Stage 3a chronic kidney disease (HCC) Hypertension PROTEIN / CREATININE RATIO, URINE Routine 06/01/2025 8:04 AM EDT Stage 3a chronic kidney disease (HCC) Hypertension URINE ALBUMIN / CREATININE RATIO Routine 06/01/2025 8:04 AM EDT Stage 3a chronic kidney disease (HCC) Hypertension CBC Routine 06/01/2025 8:04 AM EDT Stage 3a chronic kidney disease (HCC) Hypertension PTH, INTACT Routine 06/01/2025 8:04 AM EDT Stage 3a chronic kidney disease (HCC) Hypertension RENAL FUNCTION PANEL Routine 06/01/2025 8:04 AM EDT Stage 3a chronic kidney disease (HCC) Hypertension from Last 3 Months Results * (ABNORMAL) Urine Protein / creatinine ratio (06/01/2025 8:04 AM EDT) Creatinine, Ur 48.7 Not Estab. mg/dL [facility] Protein, Ur <4.0 Not Estab. mg/dL [facility] Comment:Verified by repeat analysis Urine Protein/Creatinin e Ratio Comment(A ) 0 - 200 mg/g creat [facility] Comment: This result is below the assay's limit of quantitation indicating a dilute specimen, potentially due to diurnal variation. Consider recollection at a time likely to provide a more concentrated urine. Urine specimen (specimen) Urine specimen obtained by clean catch procedure / Unknown 06/01/2025 8:04 AM EDT 06/01/2025 Pepper Nielsen [facility] LAB URINE ORDERABLES Final Result [facility] [address] [place] [address] * Urine Albumin / Creatinine Ratio (06/01/2025 8:04 AM EDT) Albumin, Urine <3.0 Not Estab. ug/mL [facility] Albumin/Creatin ine Ratio <6 0 - 29 mg/g creat [facility] Comment: Normal: 0 - 29 Moderately increased: 30 - 300 Severely increased: >300 Urine specimen (specimen) Urine specimen obtained by clean catch procedure / Unknown 06/01/2025 8:04 AM EDT 06/01/2025 [facility] LAB URINE ORDERABLES Final Result [facility] [address] [place] [address] * (ABNORMAL) CBC (06/01/2025 8:04 AM EDT) WBC 7.1 3.4 - 10.8 x10E3/uL [facility] RBC 4.55 4.14 - 5.80 x10E6/uL [facility] Hemoglobin 14.7 13.0 - 17.7 g/dL [facility] Hematocrit 45.0 37.5 - 51.0 % [facility] MCV 99(H) 79 - 97 fL [facility] MCH 32.3 26.6 - 33.0 pg [facility] MCHC 32.7 31.5 - 35.7 g/dL [facility] RDW 12.4 11.6 - 15.4 % [facility] Platelets 206 150 - 450 x10E3/uL [facility] Blood specimen (specimen) Venous blood / Unknown 06/01/2025 8:04 AM EDT 06/01/2025 [facility] LAB BLOOD ORDERABLES Final Result Performing Organization Address City/[facility]/ZIP Co de Phone Number [facility] [address] [place] [address] * PTH, intact (06/01/2025 8:04 AM EDT) Pathologist [facility] PTH 28 15 - 65 pg/mL [facility] Blood specimen (specimen) Venous blood / Unknown 06/01/2025 8:04 AM EDT 06/01/2025 [facility] LAB BLOOD ORDERABLES Final Result Performing Organization Address City/[facility] Co de Phone Number [facility] [address] [place] [address] * Magnesium (06/01/2025 8:04 AM EDT) Pathologist [facility] Magnesium 2.2 1.6 - 2.3 mg/dL [facility] Blood specimen (specimen) Venous blood / Unknown 06/01/2025 8:04 AM EDT 06/01/2025 [facility] LAB BLOOD ORDERABLES Final Result Performing Organization Address City/[facility] de Phone Number [facility] [address] [place] [address] * (ABNORMAL) Renal function panel (06/01/2025 8:04 AM EDT) Pathologist [facility] Glucose 92 70 - 99 mg/dL [facility] BUN 19 8 - 27 mg/dL [facility] Creatinine 1.53(H) 0.76 - 1.27 mg/dL [facility] eGFR CKD-EPI CR 2020 46(L) >59 mL/min/1.7 3 [facility] BUN/Creatinine Ratio 12 10 - 24 [facility] Sodium 141 134 - 144 mmol/L [facility] Potassium 4.8 3.5 - 5.2 mmol/L [facility] Chloride 101 96 - 106 mmol/L [facility] Bicarbonate (CO2) 22 20 - 29 mmol/L [facility] Calcium 9.3 8.6 - 10.2 mg/dL [facility] Albumin 4.3 3.8 - 4.8 g/dL [facility] Phosphorus 3.6 2.8 - 4.1 mg/dL [facility] Blood specimen (specimen) Venous blood / Unknown 06/01/2025 8:04 AM EDT 06/01/2025 Pepper Nielsen [facility] LAB BLOOD ORDERABLES Final Result [facility] [address] [place] [address] from Last 3 Months Insurance [facility] Medicare [facility] Medicare Care Teams Circuit Court Clerk Relationship Specialty Start Date End Date Tracy John NP [address] [place] [address] PCP - General Nurse Practitioner 12/05/23
--- OUTSIDE RECORDS SUMMARY | 2025-06-08 21:10 | XMS_ITS | Encounter Summary ---
Author Organization [facility] [place] Address [address] [facility] [address] [place] [address] Phone Care Team Providers Care Hims Manager Name Role Phone Tracy John COMPUTER SYSTEMS ARCHITECT Primary Care Provider [phone] Encounter Details Date Type Department Care Team (Late Contact Info) Description 01/09/2023 Documentation Only [facility] [place] [address] [facility] [address] [place] [phone] [place], [place] Social History Tobacco Use Types Packs/Day [...] Visit [facility] 3550 [facility] 204 [place] [phone] Pepper Nielsen ARNP [address] [phone] documented as of this encounter Visit Diagnoses Not on filedocumented in this encounter Care Teams Hims Manager Relationship Specialty Start Date End Date Tracy John NP [address] [place] [address] PCP - General Nurse Practitioner 12/05/23 documented as of this encounter
--- OUTSIDE RECORDS SUMMARY | 2025-06-08 21:10 | XMS_ITS | Clinical Summary ---
Author Organization [facility] Address [address] [place] [address] Phone Care Team Providers Care Tangled Yarn Spool Straightener Name Role Phone Unknown, Unknown Primary Care [...] [place] [id number] [employer] SUPPLEMENT MEDICARE PART A & B [employer] MEDEX SUPPLEMENT MEDICARE PART A & B [employer] MEDEX SUPPLEMENT MEDICARE PART A & B [employer] MEDEX SUPPLEMENT MEDICARE PART A & B [employer] MEDEX SUPPLEMENT MEDICARE PART A & B [email or web address] MEDEX SUPPLEMENT MEDICARE PART A & B [employer] MEDEX SUPPLEMENT MEDICARE PART A & B [employer] MEDEX SUPPLEMENT MEDICARE PART A & B [employer] MEDEX SUPPLEMENT Care Teams Tangled Yarn Spool Straightener Relationship Specialty Start Date End Date Unknown, Unknown, PCP - General 02/14/16 Additional Source Comments The information contained in this document represents components of the legal health record. It is not the complete legal health record.[facility]
== END 2025-06-08 15:59 | disposition home or self-care (01) ==
LOC: HO.HMGAL 15:53
PROVIDERS: PCP Internal Medicine; Visit Provider Registered Nurse Emergency
DX: J30.89 Other allergic rhinitis (principal)
CPT/HCPCS: 95117; 95165

== ENCOUNTER 2025-06-15 15:52 | Outpatient (AMB) | payer MEDICARE, SELFPAY ==
--- OUTSIDE RECORDS SUMMARY | 2025-06-15 18:01 | XMS_ITS | Encounter Summary ---
Demographics Address [address] [place] [address] Home Phone Mobile Phone
== END 2025-06-15 15:52 | disposition home or self-care (01) ==
LOC: HO.HMGAL 15:52
PROVIDERS: PCP Nurse Practitioner Family; Visit Provider Registered Nurse Emergency
DX: J30.89 Other allergic rhinitis (principal)
CPT/HCPCS: 95117; 95165

== ENCOUNTER 2025-06-29 15:25 | Outpatient (AMB) | payer MEDICARE, SELFPAY ==
--- OUTSIDE RECORDS SUMMARY | 2025-06-29 17:49 | XMS_ITS | Clinical Summary ---
Author Organization 175 [facility] Address [address] [place] [address] Phone Care Team Providers Care Fuel Efficient Aircraft Designer Name Role Phone Tracy John Primary Care Provider [phone] Allergies No known active allergies Social History [...] age to complete this topic Insurance MEDICARE [facility] Care Teams Fuel Efficient Aircraft Designer Relationship Specialty Start Date End Date Tracy John [address] [place] [address] PCP - General 12/18/24
--- OUTSIDE RECORDS SUMMARY | 2025-06-29 17:49 | XMS_ITS | Clinical Summary ---
Author Organization [facility] Address [address] [place] [address] Phone Care Team Providers Care Product Development Name Role Phone Unknown, Unknown Primary Care [...] [place] PART [place] [id number] [employer] MEDEX SUPPLEMENT MEDICARE PART A & B [employer] MEDEX SUPPLEMENT MEDICARE PART A & B [employer] MEDEX SUPPLEMENT MEDICARE PART A & B [employer] MEDEX SUPPLEMENT MEDICARE PART A & B [employer] MEDEX SUPPLEMENT MEDICARE PART A & B [employer] MEDEX SUPPLEMENT MEDICARE PART A & B [employer] MEDEX SUPPLEMENT MEDICARE PART A & B [employer] MEDEX SUPPLEMENT MEDICARE PART A & B [employer] MEDEX SUPPLEMENT Care Teams Product Development Relationship Specialty Start Date End Date Unknown, Unknown, PCP - General 02/14/16 Additional Source Comments The information contained in this document represents components of the legal health record. It is not the complete legal health record.[facility]
== END 2025-06-29 15:26 | disposition home or self-care (01) ==
LOC: HO.HMGAL 15:25
PROVIDERS: PCP Nurse Practitioner Family; Visit Provider Registered Nurse Emergency
DX: J30.89 Other allergic rhinitis (principal)
CPT/HCPCS: 95117; 95165

== ENCOUNTER 2025-07-08 16:12 | Outpatient (AMB) | payer MEDICARE, SELFPAY ==
--- OUTSIDE RECORDS SUMMARY | 2025-07-08 19:21 | XMS_ITS | Clinical Summary ---
Author Organization 175 [facility] Address [address] [place] [address] Phone Care Team Providers Care Bolting Machine Operator Name Role Phone Tracy John Primary Care Provider [phone] Allergies No known active allergies Social History [...] age to complete this topic Insurance MEDICARE [facility] Care Teams Bolting Machine Operator Relationship Specialty Start Date End Date Tracy John [address] [place] [address] PCP - General 12/18/24
--- OUTSIDE RECORDS SUMMARY | 2025-07-08 19:21 | XMS_ITS | Clinical Summary ---
Author Organization [facility] Address [address] [place] [address] Phone Care Team Providers Care Cto Name Role Phone Unknown, Unknown Primary Care [...] Insurance [place] PART [place] [id number] [employer] MEDEX SUPPLEMENT MEDICARE PART A & B [employer] MEDEX SUPPLEMENT MEDICARE PART A & B [employer] MEDEX SUPPLEMENT MEDICARE PART A & B [employer] MEDEX SUPPLEMENT MEDICARE PART A & B [employer] MEDEX SUPPLEMENT MEDICARE PART A & B [employer] [place] MEDEX SUPPLEMENT MEDICARE PART A & B [employer] MEDEX SUPPLEMENT MEDICARE PART A & B [employer] MEDEX SUPPLEMENT MEDICARE PART A & B [employer] MEDEX SUPPLEMENT Care Teams Cto Relationship Specialty Start Date End Date Unknown, Unknown, PCP - General 02/14/16 Additional Source Comments The information contained in this document represents components of the legal health record. It is not the complete legal health record.[facility]
== END 2025-07-08 16:12 | disposition home or self-care (01) ==
LOC: HO.HMGAL 16:12
PROVIDERS: PCP Nurse Practitioner Family; Visit Provider Registered Nurse Emergency
DX: J30.89 Other allergic rhinitis (principal)
CPT/HCPCS: 95117; 95165

== ENCOUNTER 2025-07-13 15:53 | Outpatient (AMB) | payer MEDICARE, SELFPAY ==
--- OUTSIDE RECORDS SUMMARY | 2025-07-13 20:12 | XMS_ITS | Encounter Summary ---
Author Organization [facility] [place] Address [address] [facility] [address] [place] [address] Phone Care Team Providers Care Charge Account Authorizer Name Role Phone Tracy John SOFA INSPECTOR Primary Care Provider [phone] Encounter Details Date Type Department Care Team (Late Contact Info) Description 03/24/2021 Orders Only [facility] [address] [facility] [address] [place] [phone] Caren Santos MD Stage 3a chronic kidney [...] Care Team (Late st Contact Info) Description 12/08/2025 1:15 PM EDT Office Visit [facility] 3550 [facility] [address] [place] [phone] Pepper Nielsen ARNP [address] [phone] documented as of this encounter Visit Diagnoses Diagnosis Stage 3a chronic kidney disease (HCC) Hypertensive disorder Hypophosphatemia Cyst of kidney documented in this encounter Care Teams Charge Account Authorizer Relationship Specialty Start Date End Date Tracy John NP [address] [place] [address] PCP - General Nurse Practitioner 12/05/23 documented as of this encounter
--- OUTSIDE RECORDS SUMMARY | 2025-07-13 20:12 | XMS_ITS | Clinical Summary ---
Author Organization [facility] Address [address] [address] Phone Care Team Providers Care Retail Coverage Merchandiser Lead Name Role Phone AlvaroTracy cooper BEND SORTER Primary Care Provider [phone] Allergies No known active allergies Medications Multiple [...] Encounters Date Type Department Care Team Description 06/10/2025 1:15 PM EDT Office Visit [facility] [address] [address] Pepper Nielsen ARNP Stage 3a chronic kidney disease (HCC) (Primary Dx); Hypertension; Cyst of kidney 04/24/2025 Orders Only [facility] [address] [address] Pepper Nielsen ARNP Stage 3a chronic kidney disease (HCC); Hypertension 04/15/2025 Office Communication [facility] [address] [address] Raymond Lynch from Last 3 Months Immunizations Immunization Administration Dates Next Due DT 09/12/2000 Influenza Split High Dose Pr eservative Free IM 05/15/2020,06/30/2015 Influenza, Unspecified 06/27/2022,2020,06/13/2017,08/23,06/19/2015,07/17/2014,07/24/2013 ,06/15/2010,06/09/2009 Moderna SARS-COV-2 03/25/2022 Pfizer SARS-COV-2 06/20/2021,11/19/2020,10/30/19 21 Pneumococcal Conjugate 13-Valent 03/17/2015 Pneumococcal Polysaccharide 11/22/2010 [...] Sign Reading Time Taken Comments Blood Pressure 132/70 06/10/2025 1:05 PM EDT Pulse 76 06/10/2025 1:05 PM EDT Temperature - - Respiratory Rate - - Oxygen Saturation 97% 05/29/2023 3:27 PM EDT Inhaled Oxygen Concentration - - Weight 76.2 kg (168 lb) 06/10/2025 1:05 PM EDT Height 172.7 cm (5' 8 ) 05/29/2023 3:27 PM EDT Body Mass Index 25.54 05/29/2023 3:27 PM EDT Plan of Treatment Upcoming Encounters Date Type Department Care Team (Late st Contact Info) Description 12/08/2025 1:15 PM EDT Office Visit [facility] [address] [address] Pepper Nielsen ARNP [address] [phone] Health Maintenance Due Date Last Done Comments Influenza Vaccine (#1) 2025 , 06/14/2021, 05/15/2020, Additional history exists Pneumococcal Vaccine: 50+ Years Completed 03/17/2015, 11/22/2010 Pneumococcal Vaccine: Peds (0 to 5 Years) and At-Risk Patients (6 to 49 Years) Discontinued 03/17/2015, 11/22/2010 Hepatitis B Vaccine Aged Out No longe r eligible based on patient's age to complete this topic Procedures Procedure Name Priority Date/Time Associated Diagnosis Comments VITAMIN D 25 HYDROXY Routine 06/10/2025 2:14 PM EDT Stage 3a chronic kidney disease (HCC) MAGNESIUM Routine 06/01/2025 8:04 AM EDT Stage [...] Hypertension from Last 3 Months Results * Vitamin D 25 hydroxy (06/10/2025 2:14 PM EDT) Vitamin D, 25-OH, Total 34.3 30.0 - 100.0 ng/mL [facility] Comment: Vitamin D deficiency has been defined by the [place] of Medicine and an Endocrine Society practice guideline as a level of serum 25-OH vitamin D less than 20 ng/mL (1,2). The Endocrine Society went on to further define vitamin D insufficiency as a level between 21 and 29 ng/mL (2). 1. IOM ([place] of Medicine). 2010. Dietary reference intakes for calcium and D. [place]: The National Academies Press. 2. Cristela MF, Dev VOSS, Caryl WADE, et al. Evaluation, treatment, and prevention of vitamin D deficiency: an Endocrine Society clinical practice guideline. JCEM. 2010; 96(7):1911-30. Blood Venous blood / Unknown 06/10/2025 2:14 PM EDT 06/10/2025 [facility] LAB BLOOD ORDERABLES Final Result Performing Organization Address City/[facility]/ZIP Co de Phone Number [facility] [address] [place] [address] * (ABNORMAL) Urine Protein / creatinine ratio (06/01/2025 8:04 AM EDT) Creatinine, Ur 48.7 Not Estab. mg/dL [facility] Protein, Ur <4.0 Not Estab. mg/dL [facility] Comment:Verified by repeat analysis Urine Protein/Creatinin e Ratio Comment(A ) 0 - 200 mg/g creat [facility] Comment: This result is below the assay's limit of quantitation indicating a dilute specimen, potentially due to diurnal variation. Consider recollection at a time likely to provide a more concentrated urine. Urine specimen (specimen) Urine specimen obtained by clean catch procedure / Unknown 06/01/2025 8:04 AM EDT 06/01/2025 [facility] URINE ORDERABLES Final Result Performing Organization Address City/[facility]/ZIP Co de Phone Number [facility] [address] [place] [address] * Urine Albumin / Creatinine Ratio (06/01/2025 8:04 AM EDT) Albumin, Urine <3.0 Not Estab. ug/mL [facility] Albumin/Creatin ine Ratio <6 0 - 29 mg/g creat [facility] Comment: Normal: 0 - 29 Moderately increased: 30 - 300 Severely increased: >300 Urine specimen (specimen) Urine specimen obtained by clean catch procedure / Unknown 06/01/2025 8:04 AM EDT 06/01/2025 Pepper Nielsen [facility] LAB URINE ORDERABLES Final Result Performing Organization Address City/[facility]/ZIP Co de Phone Number [facility] [address] [place] [address] * (ABNORMAL) CBC (06/01/2025 8:04 AM EDT) WBC 7.1 3.4 - 10.8 x10E3/uL [facility] RBC 4.55 4.14 - 5.80 x10E6/uL [facility] Hemoglobin 14.7 13.0 - 17.7 g/dL [facility] Hematocrit 45.0 37.5 - 51.0 % [facility] MCV 99(H) 79 - 97 fL [facility] MCH 32.3 26.6 - 33.0 pg [facility] MCHC 32.7 31.5 - 35.7 g/dL [facility] RDW 12.4 11.6 - 15.4 % [facility] Platelets 206 150 - 450 x10E3/uL [facility] Blood specimen (specimen) Venous blood / Unknown 06/01/2025 8:04 AM EDT 06/01/2025 Pepper [facility] LAB BLOOD ORDERABLES Final Result [facility] [address] [place] [address] * PTH, intact (06/01/2025 8:04 AM EDT) PTH 28 15 - 65 pg/mL [facility] Blood specimen (specimen) Venous blood / Unknown 06/01/2025 8:04 AM EDT 06/01/2025 [facility] LAB BLOOD ORDERABLES Final Result Performing Organization Address City/[facility]/ZIP Co de Phone Number [facility] [address] [place] [address] * Magnesium (06/01/2025 8:04 AM EDT) Magnesium 2.2 1.6 - 2.3 mg/dL [facility] [place] Blood specimen (specimen) Venous blood / Unknown 06/01/2025 8:04 AM EDT 06/01/2025 [facility] LAB BLOOD ORDERABLES Final Result Performing Organization Address City/[facility]/ZIP Co de Phone Number [facility] [address] [place] [address] * (ABNORMAL) Renal function panel (06/01/2025 8:04 AM EDT) Glucose 92 70 - 99 mg/dL [facility] BUN 19 8 - 27 mg/dL [facility] Creatinine 1.53(H) 0.76 - 1.27 mg/dL [facility] eGFR CKD-EPI CR 2020 46(L) >59 mL/min/1.7 3 [facility] BUN/Creatinine Ratio 12 10 - 24 [facility] Sodium 141 134 - 144 mmol/L [facility] Potassium 4.8 3.5 - 5.2 mmol/L [facility] Chloride 101 96 - 106 mmol/L [facility] Bicarbonate (CO2) 22 20 - 29 mmol/L [facility] Calcium 9.3 8.6 - 10.2 mg/dL [facility] Albumin 4.3 3.8 - 4.8 g/dL [facility] Phosphorus 3.6 2.8 - 4.1 mg/dL [facility] Blood specimen (specimen) Venous blood / Unknown 06/01/2025 8:04 AM EDT 06/01/2025 Pepper [facility] LAB BLOOD ORDERABLES Final Result [facility] [address] [place] [address] from Last 3 Months Insurance [facility] Medicare [facility] Medicare Care Teams Retail Coverage Merchandiser Lead Relationship Specialty Start Date End Date Tracy John NP [address] [place] [address] PCP - General Nurse Practitioner 12/05/23
--- OUTSIDE RECORDS SUMMARY | 2025-07-13 20:12 | XMS_ITS | Clinical Summary ---
Author Organization [facility] Address [address] [place] [address] Phone Care Team Providers Care Fluorescent Lighting Model Maker Name Role Phone Unknown, Unknown Primary Care [...] [place] [id number] BLUE CROSS MEDEX SUPPLEMENT MEDICARE PART A & B [employer] MEDEX SUPPLEMENT MEDICARE PART A & B [employer] MEDEX SUPPLEMENT MEDICARE PART A & B [employer] MEDEX SUPPLEMENT MEDICARE PART A & B [employer] MEDEX SUPPLEMENT MEDICARE PART A & B [employer] [place] MED[place] SUPPLEMENT MEDICARE PART A & B AT[employer]E MEDEX SUPPLEMENT MEDICARE PART A & B ATEM[employer] MEDEX SUPPLEMENT MEDICARE PART A & B AT[employer] MEDEX SUPPLEMENT Care Teams Fluorescent Lighting Model Maker Relationship Specialty Start Date End Date Unknown, Unknown, PCP - General 02/14/16 Additional Source Comments The information contained in this document represents components of the legal health record. It is not the complete legal health record.[facility]
--- OUTSIDE RECORDS SUMMARY | 2025-07-13 20:12 | XMS_ITS | Encounter Summary ---
Author Organization [facility] Address [address] [facility] [address] [place] [address] Phone Care Team Providers Care Hogshead Stripper Name Role Phone Tracy John MEDICAL DELIVERY TECHNICIAN Primary Care Provider [phone] Encounter Details Date Type Department Care Team (Late Contact Info) Description 01/09/2023 Documentation Only [facility] [place] [address] [facility] [address] [place] [phone] [place], [place] Social History Tobacco Use Types Packs/Day [...] Visit [facility] [address] [facility] [address] [place] [phone] Pepper Nielsen ARNP [address] [address] documented as of this encounter Visit Diagnoses Not on filedocumented in this encounter Care Teams Hogshead Stripper Relationship Specialty Start Date End Date Tracy John NP [address] [place] [address] PCP - General Nurse Practitioner 12/05/23 documented as of this encounter
== END 2025-07-13 15:56 | disposition home or self-care (01) ==
LOC: HO.HMGAL 15:53
PROVIDERS: PCP Nurse Practitioner Family; Visit Provider Registered Nurse Emergency
DX: J30.89 Other allergic rhinitis (principal)
CPT/HCPCS: 95117; 95165

== ENCOUNTER 2025-07-20 15:40 | Outpatient (AMB) | payer MEDICARE, SELFPAY ==
--- OUTSIDE RECORDS SUMMARY | 2025-07-20 18:43 | XMS_ITS | Clinical Summary ---
Author Organization [facility] Address [address] [place] [address] Phone Care Team Providers Care Examiner Of Currency Name Role Phone Unknown, Unknown Primary Care [...] [place] PART A [place] [id number] BLUE CROSS MEDEX SUPPLEMENT MEDICARE PART A & B Yu Rong MEDEX SUPPLEMENT MEDICARE PART A & B [employer] MEDEX SUPPLEMENT MEDICARE PART A & B [employer] MEDEX SUPPLEMENT MEDICARE PART A & B [employer]ong MEDEX SUPPLEMENT MEDICARE PART A & B [employer] MEDEX SUPPLEMENT MEDICARE PART A & B Yu Rong MEDEX SUPPLEMENT MEDICARE PART A & B [employer]ong MEDEX SUPPLEMENT MEDICARE PART A & B Yu Rong MEDEX SUPPLEMENT Care Teams Examiner Of Currency Relationship Specialty Start Date End Date Unknown, Unknown, PCP - General 02/14/16 Additional Source Comments The information contained in this document represents components of the legal health record. It is not the complete legal health record.[facility]
--- OUTSIDE RECORDS SUMMARY | 2025-07-20 18:43 | XMS_ITS | Encounter Summary ---
Author Organization [facility] Address [address] [facility] [address] [place] [address] Phone Care Team Providers Care Direct Sales Representative Name Role Phone Tracy John WATER SUPPLY TECHNICIAN Primary Care Provider [phone] Encounter Details Date Type Department Care Team (Late Contact Info) Description 03/24/2021 Orders Only [facility] [address] [facility] [address] [place] [phone] Caren Santos MD Stage 3a chronic kidney [...] Office Visit [facility] [address] [facility] [address] [place] [phone] Pepper Nielsen ARNP [address] [phone] documented as of this encounter Visit Diagnoses Diagnosis Stage 3a chronic kidney disease (HCC) Hypertensive disorder Hypophosphatemia Cyst of kidney documented in this encounter Care Teams Direct Sales Representative Relationship Specialty Start Date End Date Tracy John NP [address] [place] [address] PCP - General Nurse Practitioner 12/05/23 documented as of this encounter
--- OUTSIDE RECORDS SUMMARY | 2025-07-20 18:43 | XMS_ITS | Clinical Summary ---
Author Organization [facility] Address [address] [address] Phone Care Team Providers Care Supervisor Metal Hanging Name Role Phone AlvaroTracy cooper DIRECTOR PROCESS IMPROVEMENT Primary Care Provider [phone] Allergies No known active allergies Medications Multiple [...] Office Visit [facility] [address] [address] Pepper Nielsen ARNP Stage 3a chronic kidney disease (HCC) (Primary Dx); Hypertension; Cyst of kidney 04/24/2025 Orders Only [facility] [address] [address] Pepper Nielsen ARNP Stage 3a chronic kidney disease (HCC); Hypertension from Last 3 Months Immunizations Immunization Administration [...] Visit [facility] [address] [address] Pepper Nielsen ARNP [address] [phone] Health Maintenance Due Date Last Done Comments [...] 25-OH, Total 34.3 30.0 - 100.0 ng/mL [facility] Comment: Vitamin D deficiency has been defined by the [place] of Medicine and an Endocrine Society practice guideline as a level of serum 25-OH vitamin D less than 20 ng/mL (1,2). The Endocrine Society went on to further define vitamin D insufficiency as a level between 21 and 29 ng/mL (2). 1. IOM ([place] of Medicine). 2010. Dietary reference intakes for calcium and D. [place]: The National Academies Press. 2. Cristela MF, Dev [place], Caryl WADE, et al. Evaluation, treatment, and prevention of vitamin D deficiency: an Endocrine Society clinical practice guideline. JCEM. 2010; 96(7):1911-30. Blood Venous blood / Unknown 06/10/2025 2:14 PM EDT 06/10/2025 [facility] LAB BLOOD ORDERABLES Final Result [email or web address] [address] [place] [address] * (ABNORMAL) Urine Protein / creatinine ratio (06/01/2025 8:04 AM EDT) Creatinine, Ur 48.7 Not Estab. mg/dL [facility] Protein, Ur <4.0 Not Estab. mg/dL [facility] Comment:Verified by repeat analysis Urine Protein/Creatinin e Ratio Comment(A ) 0 - 200 mg/g creat [facility] Comment: This result is below the assay's limit of quantitation indicating a dilute specimen, potentially due to diurnal variation. Consider recollection at a time likely to provide a more concentrated urine. Urine specimen (specimen) Urine specimen obtained by clean catch procedure / Unknown 06/01/2025 8:04 AM EDT 06/01/2025 [facility] LAB URINE ORDERABLES Final Result Performing Organization Address City/[facility]/ZIP Co de Phone Number [email or web address] [address] [place] [address] * Urine Albumin / Creatinine Ratio (06/01/2025 8:04 AM EDT) Albumin, Urine <3.0 Not Estab. ug/mL [facility] Albumin/Creatin ine Ratio <6 0 - 29 mg/g creat [facility] Comment: Normal: 0 - 29 Moderately increased: 30 - 300 Severely increased: >300 Urine specimen (specimen) Urine specimen obtained by clean catch procedure / Unknown 06/01/2025 8:04 AM EDT 06/01/2025 [facility] LAB URINE ORDERABLES Final Result [facility] [address] [place] [address] * (ABNORMAL) CBC (06/01/2025 8:04 AM EDT) WBC 7.1 3.4 - 10.8 x10E3/uL [facility] RBC 4.55 4.14 - 5.80 x10E6/uL [facility] Hemoglobin 14.7 13.0 - 17.7 g/dL [facility] Hematocrit 45.0 37.5 - 51.0 % [facility] MCV 99(H) 79 - 97 fL [facility] MCH 32.3 26.6 - 33.0 pg [facility] MCHC 32.7 31.5 - 35.7 g/dL [facility] RDW 12.4 11.6 - 15.4 % [facility] Platelets 206 150 - 450 x10E3/uL [facility] Blood specimen (specimen) Venous blood / Unknown 06/01/2025 8:04 AM EDT 06/01/2025 [facility] LAB BLOOD ORDERABLES Final Result [facility] [address] [place] [address] * PTH, intact (06/01/2025 8:04 AM EDT) PTH 28 15 - 65 pg/mL [facility] Blood specimen (specimen) Venous blood / Unknown 06/01/2025 8:04 AM EDT 06/01/2025 [facility] LAB BLOOD ORDERABLES Final Result [facility] [address] [place] [address] * Magnesium (06/01/2025 8:04 AM EDT) Pathologist [facility] Magnesium 2.2 1.6 - 2.3 mg/dL [facility] Blood specimen (specimen) Venous blood / Unknown 06/01/2025 8:04 AM EDT 06/01/2025 [facility] LAB BLOOD ORDERABLES Final Result Performing Organization Address City/[facility] Co de Phone Number [facility] [address] [place] [address] * (ABNORMAL) Renal function panel (06/01/2025 8:04 AM EDT) Pathologist [facility] Glucose 92 70 - 99 mg/dL [facility] BUN 19 8 - 27 mg/dL [facility] Creatinine 1.53(H) 0.76 - 1.27 mg/dL [facility] eGFR CKD-EPI CR 2020 46(L) >59 mL/min/1.7 3 [facility] BUN/Creatinine Ratio 12 10 - 24 [facility] Sodium 141 134 - 144 mmol/L [facility] Potassium 4.8 3.5 - 5.2 mmol/L [facility] Chloride 101 96 - 106 mmol/L [facility] Bicarbonate (CO2) 22 20 - 29 mmol/L [facility] Calcium 9.3 8.6 - 10.2 mg/dL [facility] Albumin 4.3 3.8 - 4.8 g/dL [facility] Phosphorus 3.6 2.8 - 4.1 mg/dL [facility] Blood specimen (specimen) Venous blood / Unknown 06/01/2025 8:04 AM EDT 06/01/2025 Pepper Nielsen VISOR INSTALLER LAB BLOOD ORDERABLES Final Result [facility] [address] [place] [address] from Last 3 Months Insurance [facility] Medicare [facility] Medicare Care Teams Supervisor Metal Hanging Relationship Specialty Start Date End Date Tracy John NP [address] [place] [address] PCP - General Nurse Practitioner 12/05/23
--- OUTSIDE RECORDS SUMMARY | 2025-07-20 18:43 | XMS_ITS | Encounter Summary ---
Author Organization [facility] Address [address] [facility] [address] [place] [address] Phone Care Team Providers Care Finish Photographer Name Role Phone Tracy John BUSINESS SERVICES SPECIALIST SALES Primary Care Provider Encounter Details Date Type Department Care Team (Late Contact Info) Description 01/09/2023 Documentation Only [facility] [address] [facility] [address] [place] [phone] [place], [place] Social History Tobacco Use Types Packs/Day [...] Visit [facility] [address] [facility] [address] [place] [phone] Pepper Nielsen ARNP [address] [address] documented as of this encounter Visit Diagnoses Not on filedocumented in this encounter Care Teams Finish Photographer Relationship Specialty Start Date End Date Tracy John NP [address] [place] [address] PCP - General Nurse Practitioner 12/05/23 documented as of this encounter
--- OUTSIDE RECORDS SUMMARY | 2025-07-20 18:43 | XMS_ITS | Clinical Summary ---
Author Organization [facility] Address [address] [place] [address] Phone Care Team Providers Care Appliance Installer Name Role Phone Tracy John Primary Care Provider [phone] Allergies No known active allergies Social History [...] age to complete this topic Insurance MEDICARE [facility] Care Teams Appliance Installer Relationship Specialty Start Date End Date Tracy John [address] [place] [address] PCP - General 12/18/24
== END 2025-07-20 15:41 | disposition home or self-care (01) ==
LOC: HO.HMGAL 15:40
PROVIDERS: PCP Nurse Practitioner Family; Visit Provider Registered Nurse Emergency
DX: J30.89 Other allergic rhinitis (principal)
CPT/HCPCS: 95117; 95165

== ENCOUNTER 2025-07-27 15:28 | Outpatient (AMB) | payer MEDICARE, SELFPAY ==
--- OUTSIDE RECORDS SUMMARY | 2025-07-27 16:41 | XMS_ITS | Clinical Summary ---
Author Organization [facility] Address [address] [place] [address] Phone Care Team Providers Care Refinery Operator Light Ends Recovery Name Role Phone Tracy John Primary Care Provider [phone] Allergies No known active allergies Social History [...] 12/12/2024 Hypertension/CHF/CAD Annual BMP Blood Test 01/19/2025 DTaP,Tdap,and Td Vaccines (3 - Td or Tdap) 11/16/2025 11/16/2015, 09/12/2000 Pneumococcal Vaccine: 50+ Years Completed 03/17/2015, 11/22/2010 Zoster Vaccines Completed 07/08/2019, 02/11/2018 RSV Immunization Adult Patients Completed 07/07/2023 COVID-19 Vaccine Completed 07/16/2025, 05/2024, 12/03/2023, Additional history exists Influenza Vaccine Completed 07/16/2025, , 06/30/2023, Additional history exists HIB Vaccines Aged Out No longer eligi [...] age to complete this topic Insurance MEDICARE [facility] Care Teams Refinery Operator Light Ends Recovery Relationship Specialty Start Date End Date Tracy John [address] [place] [address] [facility] - General 12/18/24
--- OUTSIDE RECORDS SUMMARY | 2025-07-27 16:42 | XMS_ITS | Clinical Summary ---
Author Organization [facility] Address [address] [place] [address] Phone Care Team Providers Care Earth Boring Machine Operator Name Role Phone Unknown, Unknown Primary Care [...] [place] PART A [place] [id number] BLUE CROSS MEDEX SUPPLEMENT MEDICARE PART A & B [email or web address] MEDEX SUPPLEMENT MEDICARE PART A & B [email or web address] MEDEX SUPPLEMENT MEDICARE PART A & B [email or web address] MEDEX SUPPLEMENT MEDICARE PART A & B [email or web address] MEDEX SUPPLEMENT MEDICARE PART A & B [employer] MEDEX SUPPLEMENT MEDICARE PART A & B [employer] MEDEX SUPPLEMENT MEDICARE PART A & B [email or web address] MEDEX SUPPLEMENT MEDICARE PART A & B [email or web address] MEDEX SUPPLEMENT Care Teams Earth Boring Machine Operator Relationship Specialty Start Date End Date Unknown, Unknown, PCP - General 02/14/16 Additional Source Comments The information contained in this document represents components of the legal health record. It is not the complete legal health record.[facility]
== END 2025-07-27 15:28 | disposition home or self-care (01) ==
LOC: HO.HMGAL 15:28
PROVIDERS: PCP Nurse Practitioner Family; Visit Provider Registered Nurse Emergency
DX: J30.89 Other allergic rhinitis (principal)
CPT/HCPCS: 95117; 95165

== ENCOUNTER 2025-08-03 16:06 | Outpatient (AMB) | payer MEDICARE, SELFPAY ==
--- OUTSIDE RECORDS SUMMARY | 2025-08-03 17:56 | XMS_ITS | Clinical Summary ---
Author Organization [facility] Address [address] [place] [address] Phone Care Team Providers Care Suspension Cord Tier Name Role Phone Unknown, Unknown Primary Care [...] [place] [id number] BLUE CROSS MEDEX SUPPLEMENT MEDICARE PART A & B [employer] MEDEX SUPPLEMENT MEDICARE PART A & B [employer] MEDEX SUPPLEMENT MEDICARE PART A & B [employer] MEDEX SUPPLEMENT MEDICARE PART A & B [employer] MEDEX SUPPLEMENT MEDICARE PART A & B [employer] [place] MEDEX SUPPLEMENT MEDICARE PART A & B [employer] MEDEX SUPPLEMENT MEDICARE PART A & B [employer] MEDEX SUPPLEMENT MEDICARE PART A & B [employer] MEDEX SUPPLEMENT Care Teams Suspension Cord Tier Relationship Specialty Start Date End Date Unknown, Unknown, PCP - General 02/14/16 Additional Source Comments The information contained in this document represents components of the legal health record. It is not the complete legal health record.[facility]
--- OUTSIDE RECORDS SUMMARY | 2025-08-03 17:56 | XMS_ITS | Encounter Summary ---
Author Organization [facility] Address [address] [facility] [address] [place] [address] Phone Care Team Providers Care Sales Enablement Manager Name Role Phone Tracy John DESIGN PAINTER Primary Care Provider [phone] Encounter Details Date Type Department Care Team (Late Contact Info) Description 03/24/2021 Orders Only [facility] [address] [facility] [address] [place] [phone] Caren Santos MD Stage 3a chronic kidney [...] Office Visit [facility] [address] [facility] [address] [place] [phone] Pepper Nielsen ARNP [address] [phone] documented as of this encounter Visit Diagnoses Diagnosis Stage 3a chronic kidney disease (HCC) Hypertensive disorder Hypophosphatemia Cyst of kidney documented in this encounter Care Teams Sales Enablement Manager Relationship Specialty Start Date End Date Tracy John NP [address] [place] [address] PCP - General Nurse Practitioner 12/05/23 documented as of this encounter
--- OUTSIDE RECORDS SUMMARY | 2025-08-03 17:56 | XMS_ITS | Encounter Summary ---
Author Organization [facility] [place] Address [address] [facility] [address] [place] [address] Phone Care Team Providers Care Denture Processor Name Role Phone Tracy John MANAGER SIX SIGMA Primary Care Provider [phone] Encounter Details Date Type Department Care Team (Late Contact Info) Description 01/09/2023 Documentation Only [facility] [address] [facility] [address] [place] [phone] [place], [place] Social History Tobacco Use Types Packs/Day [...] Visit [facility] 3550 [facility] [address] [place] [phone] Pepper Nielsen ARNP [address] [address] documented as of this encounter Visit Diagnoses Not on filedocumented in this encounter Care Teams Denture Processor Relationship Specialty Start Date End Date Trcay John NP [address] [place] [address] PCP - General Nurse Practitioner 12/05/23 documented as of this encounter
--- OUTSIDE RECORDS SUMMARY | 2025-08-03 17:56 | XMS_ITS | Clinical Summary ---
Author Organization 175 [facility] Address 175 [place] [address] Phone Care Team Providers Care Narcotics Agent Name Role Phone Tracy John Primary Care Provider [phone] Allergies No known active allergies Social History [...] age to complete this topic Insurance MEDICARE [facility] Care Teams Narcotics Agent Relationship Specialty Start Date End Date Tracy John [address] [place] [address] [facility] - General 12/18/24
--- OUTSIDE RECORDS SUMMARY | 2025-08-03 17:56 | XMS_ITS | Clinical Summary ---
Author Organization [facility] Address [address] [address] Phone Care Team Providers Care Burner Shaft Name Role Phone AlvaroTracy cooper CUFFER Primary Care Provider [phone] Allergies No known active allergies Medications Multiple [...] Office Visit [facility] [address] [address] Pepper Nielsen ARNP Stage 3a chronic kidney disease (HCC) (Primary Dx); Hypertension; Cyst of kidney from Last 3 Months Immunizations Immunization Administration [...] Office Visit [facility] [address] [address] Pepper Nielsen ARNP [address] [address] Health Maintenance Due Date Last Done Comments [...] 25-OH, Total 34.3 30.0 - 100.0 ng/mL [employer] [place] Comment: Vitamin D deficiency has been defined by the [place] of Medicine and an Endocrine Society practice guideline as a level of serum 25-OH vitamin D less than 20 ng/mL (1,2). The Endocrine Society went on to further define vitamin D insufficiency as a level between 21 and 29 ng/mL (2). 1. IOM ([place] of Medicine). 2010. Dietary reference intakes for calcium and D. [place]: The National Academies Press. 2. Cristela MF, Dev NC, Caryl WADE, et al. Evaluation, treatment, and prevention of vitamin D deficiency: an Endocrine Society clinical practice guideline. JCEM. 2010; 96(7):1911-30. Blood Venous blood / Unknown 06/10/2025 2:14 PM EDT 06/10/2025 Pepper MARQUEZ LAB BLOOD ORDERABLES Final Result [facility] [address] [place] [address] * (ABNORMAL) Urine Protein / creatinine ratio (06/01/2025 8:04 AM EDT) Creatinine, Ur 48.7 Not Estab. mg/dL [facility] Protein, Ur <4.0 Not Estab. mg/dL [facility] [place] Comment:Verified by repeat analysis Urine Protein/Creatinin e Ratio Comment(A ) 0 - 200 mg/g creat [facility] Comment: This result is below the assay's limit of quantitation indicating a dilute specimen, potentially due to diurnal variation. Consider recollection at a time likely to provide a more concentrated urine. Urine specimen (specimen) Urine specimen obtained by clean catch procedure / Unknown 06/01/2025 8:04 AM EDT 06/01/2025 [employer] [facility] LAB URINE ORDERABLES Final Result Performing Organization Address City/[facility]/ZIP Co de Phone Number [facility] [place] [address] [place] [address] * Urine Albumin / Creatinine Ratio (06/01/2025 8:04 AM EDT) Albumin, Urine <3.0 Not Estab. ug/mL [facility] Albumin/Creatin ine Ratio <6 0 - 29 mg/g creat [facility] [place] Comment: Normal: 0 - 29 Moderately increased: 30 - 300 Severely increased: >300 Urine specimen (specimen) Urine specimen obtained by clean catch procedure / Unknown 06/01/2025 8:04 AM EDT 06/01/2025 [employer] [facility] LAB URINE ORDERABLES Final Result [facility] [place] [address] [place] [address] * (ABNORMAL) CBC (06/01/2025 8:04 AM EDT) WBC 7.1 3.4 - 10.8 x10E3/uL [facility] RBC 4.55 4.14 - 5.80 x10E6/uL [facility] Hemoglobin 14.7 13.0 - 17.7 g/dL [facility] Hematocrit 45.0 37.5 - 51.0 % [facility] MCV 99(H) 79 - 97 fL [facility] MCH 32.3 26.6 - 33.0 pg [facility] MCHC 32.7 31.5 - 35.7 g/dL [facility] RDW 12.4 11.6 - 15.4 % [facility] Platelets 206 150 - 450 x10E3/uL [facility] Blood specimen (specimen) Venous blood / Unknown 06/01/2025 8:04 AM EDT 06/01/2025 [facility] LAB BLOOD ORDERABLES Final Result [facility] [place] [address] [place] [phone] * PTH, intact (06/01/2025 8:04 AM EDT) PTH 28 15 - 65 pg/mL [facility] Blood specimen (specimen) Venous blood / Unknown 06/01/2025 8:04 AM EDT 06/01/2025 [employer] [facility] LAB BLOOD ORDERABLES Final Result [facility] [place] [address] [place] [address] * Magnesium (06/01/2025 8:04 AM EDT) Magnesium 2.2 1.6 - 2.3 mg/dL [facility] [place] Blood specimen (specimen) Venous blood / Unknown 06/01/2025 8:04 AM EDT 06/01/2025 Pepper Nielsen [facility] LAB BLOOD ORDERABLES Final Result [facility] [place] [address] [place] [address] * (ABNORMAL) Renal function panel (06/01/2025 8:04 AM EDT) Glucose 92 70 - 99 mg/dL [facility] BUN 19 8 - 27 mg/dL [facility] Creatinine 1.53(H) 0.76 - 1.27 mg/dL [facility] eGFR CKD-EPI CR 2020 46(L) >59 mL/min/1.7 3 [facility] BUN/Creatinine Ratio 12 10 - 24 [facility] Sodium 141 134 - 144 mmol/L [facility] Potassium 4.8 3.5 - 5.2 mmol/L [facility] Chloride 101 96 - 106 mmol/L [facility] Bicarbonate (CO2) 22 20 - 29 mmol/L [facility] Calcium 9.3 8.6 - 10.2 mg/dL [facility] Albumin 4.3 3.8 - 4.8 g/dL [facility] Phosphorus 3.6 2.8 - 4.1 mg/dL [facility] Blood specimen (specimen) Venous blood / Unknown 06/01/2025 8:04 AM EDT 06/01/2025 Pepper Nielsen JIMMY LAB BLOOD ORDERABLES Final Result [facility] [address] [place] [phone] from Last 3 Months Insurance [facility] Medicare [facility] Medicare Care Teams Burner Shaft Relationship Specialty Start Date End Date Tracy John NP [address] [place] [address] PCP - General Nurse Practitioner 12/05/23
== END 2025-08-03 16:07 | disposition home or self-care (01) ==
LOC: HO.HMGAL 16:06
PROVIDERS: PCP Nurse Practitioner Family; Visit Provider Registered Nurse Emergency
DX: J30.89 Other allergic rhinitis (principal)
CPT/HCPCS: 95117; 95165

== ENCOUNTER 2025-08-10 14:14 | Outpatient (AMB) | payer MEDICARE, SELFPAY | END 2025-08-10 14:14 | disposition home or self-care (01) | LOC: HO.HMGAL 14:14 | PROVIDERS: PCP Nurse Practitioner Family; Visit Provider Registered Nurse Emergency | DX: J30.89 Other allergic rhinitis (principal) | CPT/HCPCS: 95117; 95165 ==

== ENCOUNTER 2025-08-17 15:43 | Outpatient (AMB) | payer MEDICARE, SELFPAY ==
--- OUTSIDE RECORDS SUMMARY | 2025-08-17 20:12 | XMS_ITS | Clinical Summary ---
Author Organization [facility] Address [address] [place] [address] Phone Care Team Providers Care Guest Services Lead Name Role Phone Unknown, Unknown Primary Care [...] [place] [id number] BLUE [employer]OSS MEDEX SUPPLEMENT MEDICARE PART A & B [email or web address] MEDEX SUPPLEMENT MEDICARE PART A & B [email or web address] MEDEX SUPPLEMENT MEDICARE PART A & B [email or web address] MEDEX SUPPLEMENT MEDICARE PART A & B [email or web address] MEDEX SUPPLEMENT MEDICARE PART A & B [employer] [place] MEDEX SUPPLEMENT MEDICARE PART A & B [email or web address] MEDEX SUPPLEMENT MEDICARE PART A & B [email or web address] MEDEX SUPPLEMENT MEDICARE PART A & B [email or web address] MEDEX SUPPLEMENT Care Teams Guest Services Lead Relationship Specialty Start Date End Date Unknown, Unknown, PCP - General 02/14/16 Additional Source Comments The information contained in this document represents components of the legal health record. It is not the complete legal health record.[facility]
--- OUTSIDE RECORDS SUMMARY | 2025-08-17 20:12 | XMS_ITS | Clinical Summary ---
Author Organization 175 [facility] Address 175 [place] [address] Phone Care Team Providers Care Rn Unit Manager Name Role Phone Tracy John Primary Care Provider [phone] Allergies No known active allergies Social History [...] - Td or Tdap) 11/16/2025 11/16/2015, 09/12/2000 COVID-19 Vaccine ( season) 2026 07/16/2025, 06/02/2024, 12/03/2023, Additional history exists Pneumococcal Vaccine: 50+ Years Completed 03/17/2015, 11/22/2010 Zoster Vaccines Completed 07/08/2019, 02/11/2018 RSV Immunization Adult Patients Completed 07/07/2023 Influenza Vaccine Completed 07/16/2025, , 06/30/2023, Additional [...] to complete this topic Insurance MEDICARE [facility] Care Teams Rn Unit Manager Relationship Specialty Start Date End Date Alvaro Tracy [address] [place] [address] PCP - General 12/18/24
== END 2025-08-17 15:44 | disposition home or self-care (01) ==
LOC: HO.HMGAL 15:43
PROVIDERS: PCP Nurse Practitioner Family; Visit Provider Registered Nurse Emergency
DX: J30.89 Other allergic rhinitis (principal)
CPT/HCPCS: 95117; 95165

== ENCOUNTER 2025-08-24 12:55 | Outpatient (AMB) | payer MEDICARE, SELFPAY ==
--- OUTSIDE RECORDS SUMMARY | 2025-08-24 16:31 | XMS_ITS | Encounter Summary ---
Author Organization [facility] Address [address] [facility] [address] [place] [address] Phone Care Team Providers Care Cable Maker Name Role Phone Tracy John AVIONICS SHOP SUPERVISOR Primary Care Provider [phone] Encounter Details Date Type Department Care Team (Late Contact Info) Description 01/09/2023 Documentation Only [facility] [address] [facility] [address] [place] [phone] [place], [place] Social History Tobacco Use Types Packs/Day [...] Visit [facility] 3550 [facility] 204 [place] [phone] Pepper Nielsen ARNP [address] [address] documented as of this encounter Visit Diagnoses Not on filedocumented in this encounter Care Teams Cable Maker Relationship Specialty Start Date End Date Tracy John NP [address] [place] [address] PCP - General Nurse Practitioner 12/05/23 documented as of this encounter
--- OUTSIDE RECORDS SUMMARY | 2025-08-24 16:31 | XMS_ITS | Encounter Summary ---
Author Organization [facility] [place] Address [address] [facility] [address] [place] [address] Phone Care Team Providers Care Transcribing Operators Supervisor Name Role Phone Tracy John ELECTRONIC HEALTH RECORDS SPECIALIST Primary Care Provider [phone] Encounter Details Date Type Department Care Team (Late Contact Info) Description 03/24/2021 Orders Only [facility] [address] [facility] [address] [place] [phone] Caren Santos MD Stage 3a chronic kidney [...] Office Visit [facility] [address]50 [facility] [address] [place] [phone] Pepper Nielsen ARNP [address] [phone] documented as of this encounter Visit Diagnoses Diagnosis Stage 3a chronic kidney disease (HCC) Hypertensive disorder Hypophosphatemia Cyst of kidney documented in this encounter Care Teams Transcribing Operators Supervisor Relationship Specialty Start Date End Date Tracy John NP [address] [place] [address] PCP - General Nurse Practitioner 12/05/23 documented as of this encounter
--- OUTSIDE RECORDS SUMMARY | 2025-08-24 16:32 | XMS_ITS | Clinical Summary ---
Author Organization 175 [facility] Address [address] [place] [address] Phone Care Team Providers Care Air Conditioning Unit Assembler Name Role Phone Tracy John Primary Care Provider [phone] Allergies No known active allergies Social History [...] age to complete this topic Insurance MEDICARE [facility] Care Teams Air Conditioning Unit Assembler Relationship Specialty Start Date End Date Alvaro Tracy [address] [place] [address] PCP - General 12/18/24
--- OUTSIDE RECORDS SUMMARY | 2025-08-24 16:32 | XMS_ITS | Clinical Summary ---
Author Organization [facility] Address [address] [address] Phone Care Team Providers Care Therapeutic Assistant Name Role Phone AlvaroTracy cooper STAFFING ADMINISTRATOR Primary Care Provider [phone] Allergies No known active allergies Medications Multiple [...] Visit [facility] [address] [address] Pepper Nielsen ARNP Stage 3a chronic kidney [...] Office Visit [facility] [address] [address] Pepper Nielsen ARNP [address] [address] Health Maintenance Due Date Last [...] 25-OH, Total 34.3 30.0 - 100.0 ng/mL [employer] [place] Comment: Vitamin D deficiency has been defined by the [place] of Medicine and an Endocrine Society practice guideline as a level of serum 25-OH vitamin D less than 20 ng/mL (1,2). The Endocrine Society went on to further define vitamin D insufficiency as a level between 21 and 29 ng/mL (2). 1. IOM ([place] of Medicine). 2010. Dietary reference intakes for calcium and D. [place]: The National Academies Press. 2. Crsitela MF, Dev NC, Caryl WADE, et al. Evaluation, treatment, and prevention of vitamin D deficiency: an Endocrine Society clinical practice guideline. JCEM. 2010; 96(7):1911-30. Blood Venous blood / Unknown 06/10/2025 2:14 PM EDT 06/10/2025 Pepper MARQUEZ LAB BLOOD ORDERABLES Final Result [facility] [address] [place] [phone] * (ABNORMAL) Urine Protein / creatinine ratio (06/01/2025 8:04 AM EDT) Creatinine, Ur 48.7 Not Estab. mg/dL [facility] [place] Protein, Ur <4.0 Not Estab. mg/dL [facility] [place] Comment:Verified by repeat analysis Urine Protein/Creatinin e Ratio Comment(A ) 0 - 200 mg/g creat [facility] [place] Comment: This result is below the assay's limit of quantitation indicating a dilute specimen, potentially due to diurnal variation. Consider recollection at a time likely to provide a more concentrated urine. Urine specimen (specimen) Urine specimen obtained by clean catch procedure / Unknown 06/01/2025 8:04 AM EDT 06/01/2025 [facility] LAB URINE ORDERABLES Final Result Performing Organization Address City/[facility]/ZIP Co de Phone Number [facility] [place] [address] [place] [address] * Urine Albumin / Creatinine Ratio (06/01/2025 8:04 AM EDT) Albumin, Urine <3.0 Not Estab. ug/mL [facility] [place] Albumin/Creatin ine Ratio <6 0 - 29 mg/g creat [facility] [place] Comment: Normal: 0 - 29 Moderately increased: 30 - 300 Severely increased: >300 Urine specimen (specimen) Urine specimen obtained by clean catch procedure / Unknown 06/01/2025 8:04 AM EDT 06/01/2025 [facility] LAB URINE ORDERABLES Final Result [facility] [place] [address] [place] [address] * (ABNORMAL) CBC (06/01/2025 8:04 AM EDT) WBC 7.1 3.4 - 10.8 x10E3/uL [facility] [place] RBC 4.55 4.14 - 5.80 x10E6/uL [facility] [place] Hemoglobin 14.7 13.0 - 17.7 g/dL [facility] [place] Hematocrit 45.0 37.5 - 51.0 % [facility] [place] MCV 99(H) 79 - 97 fL [facility] MCH 32.3 26.6 - 33.0 pg [facility] [place] MCHC 32.7 31.5 - 35.7 g/dL [facility] [place] RDW 12.4 11.6 - 15.4 % [facility] [place] Platelets 206 150 - 450 x10E3/uL [facility] [place] Blood specimen (specimen) Venous blood / Unknown 06/01/2025 8:04 AM EDT 06/01/2025 [facility] LAB BLOOD ORDERABLES Final Result [facility] [place] [address] [place] [phone] * PTH, intact (06/01/2025 8:04 AM EDT) PTH 28 15 - 65 pg/mL [facility] [place] Blood specimen (specimen) Venous blood / Unknown 06/01/2025 8:04 AM EDT 06/01/2025 [facility] LAB BLOOD ORDERABLES Final Result [facility] [place] [address] [place] [address] * Magnesium (06/01/2025 8:04 AM EDT) Magnesium 2.2 1.6 - 2.3 mg/dL [facility] [place] Blood specimen (specimen) Venous blood / Unknown 06/01/2025 8:04 AM EDT 06/01/2025 Pepper Nielsen [facility] LAB BLOOD ORDERABLES Final Result [facility] [place] [address] [place] [address] * (ABNORMAL) Renal function panel (06/01/2025 8:04 AM EDT) Glucose 92 70 - 99 mg/dL [facility] [place] BUN 19 8 - 27 mg/dL [facility] [place] Creatinine 1.53(H) 0.76 - 1.27 mg/dL [facility] [place] eGFR CKD-EPI CR 2020 46(L) >59 mL/min/1.7 3 [facility] [place] BUN/Creatinine Ratio 12 10 - 24 [facility] [place] Sodium 141 134 - 144 mmol/L [facility] [place] Potassium 4.8 3.5 - 5.2 mmol/L [facility] [place] Chloride 101 96 - 106 mmol/L [facility] [place] Bicarbonate (CO2) 22 20 - 29 mmol/L [facility] [place] Calcium 9.3 8.6 - 10.2 mg/dL [facility] [place] Albumin 4.3 3.8 - 4.8 g/dL [facility] [place] Phosphorus 3.6 2.8 - 4.1 mg/dL [facility] [place] Blood specimen (specimen) Venous blood / Unknown 06/01/2025 8:04 AM EDT 06/01/2025 Pepper Nielsen JIMMY LAB BLOOD ORDERABLES Final Result [facility] [address] [place] [phone] from Last 3 Months Insurance [facility] Medicare [facility] Medicare Care Teams Therapeutic Assistant Relationship Specialty Start Date End Date Tracy John NP [address] [place] [address] PCP - General Nurse Practitioner 12/05/23
--- OUTSIDE RECORDS SUMMARY | 2025-08-24 16:32 | XMS_ITS | Clinical Summary ---
Author Organization [facility] Address [address] [place] [address] Phone Care Team Providers Care Furniture And Bedding Inspector Name Role Phone Unknown, Unknown Primary Care [...] [place] [id number] BLUE CROSS MEDEX SUPPLEMENT MEDICARE PART A & B [employer] MED[employer] SUPPLEMENT MEDICARE PART A & B [employer] SUPPLEMENT MEDICARE PART A & B [employer] SUPPLEMENT MEDICARE PART A & B [employer] SUPPLEMENT MEDICARE PART A & B [employer] MEDEX SUPPLEMENT MEDICARE PART A & B [employer] MED[employer] SUPPLEMENT MEDICARE PART A & B [employer] SUPPLEMENT MEDICARE PART A & B [employer] MED[employer] SUPPLEMENT Care Teams Furniture And Bedding Inspector Relationship Specialty Start Date End Date Unknown, Unknown, PCP - General 02/14/16 Additional Source Comments The information contained in this document represents components of the legal health record. It is not the complete legal health record.[facility]
== END 2025-08-24 12:56 | disposition home or self-care (01) ==
LOC: HO.HMGAL 12:55
PROVIDERS: PCP Nurse Practitioner Family; Visit Provider Registered Nurse Emergency
DX: J30.89 Other allergic rhinitis (principal)
CPT/HCPCS: 95117; 95165

== ENCOUNTER 2025-08-31 15:48 | Outpatient (AMB) | payer MEDICARE, SELFPAY ==
--- OUTSIDE RECORDS SUMMARY | 2025-09-01 01:22 | XMS_ITS | Clinical Summary ---
Author Organization [facility] Address [address] [place] [address] Phone Care Team Providers Care Oxygen Therapy Teacher Name Role Phone Unknown, Unknown Primary [...] [place] [id number] BLUE CROSS MEDEX SUPPLEMENT MEDICARE PART A & B [employer] MEDEX SUPPLEMENT MEDICARE PART A & B [employer] MEDEX SUPPLEMENT MEDICARE PART A & B [employer] MEDEX SUPPLEMENT MEDICARE PART A & B [employer] MEDEX SUPPLEMENT MEDICARE PART A & B [employer] MEDEX SUPPLEMENT MEDICARE PART A & B [employer] MEDEX SUPPLEMENT MEDICARE PART A & B [employer] MEDEX SUPPLEMENT MEDICARE PART A & B [employer] MEDEX SUPPLEMENT Care Teams Oxygen Therapy Teacher Relationship Specialty Start Date End Date Unknown, Unknown, PCP - General 02/14/16 Additional Source Comments The information contained in this document represents components of the legal health record. It is not the complete legal health record.[facility]
--- OUTSIDE RECORDS SUMMARY | 2025-09-01 01:22 | XMS_ITS | Clinical Summary ---
Author Organization 175 [facility] Address [address] [place] [address] Phone Care Team Providers Care Inner Layer Scrubber Tender Name Role Phone Tracy John Primary Care Provider [phone] Allergies No known active allergies Social History [...] age to complete this topic Insurance MEDICARE [facility] Care Teams Inner Layer Scrubber Tender Relationship Specialty Start Date End Date Alvaro Tracy [address] [place] [address] PCP - General 12/18/24
== END 2025-08-31 15:48 | disposition home or self-care (01) ==
LOC: HO.HMGAL 15:48
PROVIDERS: PCP Nurse Practitioner Family; Visit Provider Registered Nurse Emergency
DX: J30.89 Other allergic rhinitis (principal)
CPT/HCPCS: 95117; 95165

== ENCOUNTER 2025-09-07 16:27 | Outpatient (AMB) | payer MEDICARE, SELFPAY ==
--- OUTSIDE RECORDS SUMMARY | 2025-09-02 23:59 | XMS_ITS | Continuity of Care Document ---
Author Organization [facility] Adult Address [address] [place] [address]- Care Team Providers Care Pulmonologist Name Role Phone Tracy John NP Primary Care Physician Encounter [facility] [place] Date(s): 08/26/25 - 09/02/25 [facility] Adult [address] [place] [address]- Encounter Diagnosis Chronic kidney disease, stage 3a(Discharge Diagnosis) - 08/26/25 Dyspepsia(Discharge Diagnosis) - 08/26/25 Medicare annual wellness visit, subsequent(Discharge Diagnosis) - 08/26/25 Chronic abdominal pain(Discharge Diagnosis) - 08/26/25 HTN (hypertension)(Discharge Diagnosis) - 08/26/25 BPH (benign prostatic hyperplasia)(Discharge Diagnosis) - 08/26/25 Attending Physician: Tracy John NP Encounter Type: Office Visit Allergies, Adverse Reactions, Alerts No Known Allergies Functional Status Functional Status Assessment Assessment Assessment Component Result Effecti ve Date STEADI 3 Score 0 08/26/25 Functional Status Assessment Assessment Assessment Component Result Effecti ve Date Disability status [CUBS] I'm Thriving - no identified disability 08/26/25 Because of a physica l, mental, or emotional condition, do you have difficulty doing errands alone such as visiting a physician's office or shopping No 08/26/25 Do you need any eliseo tional assistance or accommodations during your visit No 08/26/25 Do you have difficul ty dressing or bathing No 08/26/25 Do you have serious difficulty walking or climbing stairs No 08/26/25 Difficulty Reading O r Writing No 08/26/25 Because of a physica l, mental, or emotional condition, do you have serious difficulty concentrating, remembering, or making decisions No 08/26/25 Difficulty communica ting in usual language No 08/26/25 Are you blind, or do you have serious difficulty seeing, even when wearing glasses Yes 08/26/25 Are you deaf, or do you have serious difficulty hearing No 08/26/25 Immunizations Given and Recorded Vaccine Date Status Refusal Reason influenza virus vaccine, inactivated 07/16/25 Todd rded influenza virus vaccine, inactivated 06/02/24 Todd rded [...] vaccine, inactivated 7 06/09/09 Gi nicholas SARS-CoV-2(COVID-19)mRNA-LNP vac([id number]) 07/16/25 Recorded SARS-CoV-2(COVID-19)mRNA-LNP vac([id number]) 06/02/24 Recorded SARS-CoV-2(COVID-19)mRNA-LNP vac([id number]) 12/03/23 Recorded SARS-CoV-2(COVID-19)mRNA-LNP vac([id number]) 06/30/23 Recorded RSV vaccine preF3, recombinant 07/07/23 Recorded [id number] 12y+ bivalent booster vax 8 06/27/22 Recorded [...] diphtheria-tetanus toxoids (DT) 09/12/00 Given 1Result Comment: [facility] [phone] 2Result Comment: [08/24/2016] [facility] 4[facility] Comment: [facility]/17/2015[facility] 5Admin Note: pharmacy 6Admin Note: VIS SHEET GIVEN 05/03/2010 7Admin Note: vis 05/04/09 8[facility] 9Result Comment: Vishal 10Result Comment: [11/16/2015] [facility] 11Location History[facility] Medications acetaminophen 500 mg oral tablet 2 tablet = 1,000 mg, By Mouth, Every 6 hours, 0 Refills, Maintenance, 06/28/18 1:47:55 PM EDT Start Date: 06/28/18 Status: Ordered Medication Dispense Status: Completed Total Allowed Fills: 1 Fills Dispensed: 0 amLODIPine 10 mg oral tablet 0 Refills, Maintenance, 08/26/25 4:08:00 PM EST, Partial fill upon patient request if the prescription is for a schedule II opioid drug. Start Date: 08/26/25 Status: Ordered Medication Dispense Status: Completed Total Allowed Fills: 1 Fills Dispensed: 0 famotidine 20 mg oral tablet 20 mg, 1, tablet, 2 times a day, Refills 0, Maintenance, 07/25/23 4:20:00 PM EDT, [...] 1 Refills, Maintenance, 01/26/25 9:37:00 PM EDT, [facility] STORE [id number], 90, TAKE 1 TABLET BY MOUTH EVERY [...] mg oral tablet 1, tablet, By Mouth, Daily at bedtime, # 90 tablet, Refills 0, Tot. Refills 0, Maintenance, 08/14/25 7:48:00 AM EST, Route to Pharmacy Electronically, [facility]/pharmacy #[id number], 169, cm, 12/03/24 10:55:00 EDT, Height Start Date: 08/14/25 Stop Date: 11/12/25 Status: Ordered Medication Dispense Status: Completed Quantity: 90.0 Unit: tablet Total Allowed Fills: 1 Fills Dispensed: 0 Mental Status Mental Status Assessment Assessment Assessment Component Result Effecti ve Date Patient Health Questionnaire 2 item (PHQ-2) total score [Reported] 0 08/26/25 Problem List Condition Confirmation Course Effective Dates [...] cm2 2Per chart review meets GFR criteria Diagnosis Diagnosis Type Effective Dates Health Status Clinical Service Informant Chronic kidney disease, stage 3a Discharge Diagnosis 08/26/25 Dyspepsia Discharge Diagnosis 08/26/25 Medicare annual wellness visit, subsequent Discharge Diagnosis 08/26/25 Chronic abdominal pain Discharge Diagnosis 08/26/25 HTN (hypertension) Discharge Diagnosis 08/26/25 BPH (benign prostatic hyperplasia) Discharge Diagnosis 08/26/25 Vital Signs Most recent to oldest [Reference Range]: 1 Height 168.2 cm (08/26/25 3:37 PM) Weight 75.1 kg (08/26/25 3:37 PM) Oxygen Saturation [94-100 %] 99 % (08/26/25 3:37 PM) Pulse Rate [55-90 bpm] 87 bpm (08/26/25 3:37 PM) Body Mass Index [18.5-24.99 kg/m2] 26.55 kg/m2 *H* (08/26/25 3:37 PM) Blood Pressure [90-138/55-84 mm Hg] 139/ 65mm Hg *H* (08/26/25 3:37 PM) Temperature [96.8-100.4 DegF] 98.1 DegF (08/26/25 3:37 PM) Mode of Delivery (Oxygen) Room air (08/26/25 3:37 PM) Blood pressure sites Arm, left (08/26/25 3:37 PM) Temperature Route Oral (08/26/25 3:37 PM) Weight Obtained Via Standing scale (08/26/25 3:37 PM) Note * Neela Mitchell: PERFORM Event Display: Patient Education/Instruction Authored Date: Ambulatory Adult Visit Summary [address] [address] Name: ARIEL LOWE : 1945?? Visit: 08/26/2025 15:35?? Ambulatory Visit Instructions ?? Your Care Team Primary Care Provider Tracy Jhon NP? This Visit Provider Tracy John NP Your Diagnosis Chronic kidney disease, stage 3a Dyspepsia Medicare annual wellness visit, subsequent HLD (hyperlipidemia) Vitals Signs Temperature: 98.1 DegF Height: 168.2 cm Pulse Rate: 87 bpm Weight: 75.1 kg Systolic Blood Pressure:??139 mm Hg??High Body Mass Index:??26.55 kg/m2??High Diastolic Blood Pressure: 65 mm Hg Body surface area: 1.87 Oxygen Saturation: 99 % ?? What to do next Follow-Up Appointments Follow Up with??Tracy John NP When:09/21/2026 01:30 PM EST Where:[address] [place] [address], [address] [place] [address]- Additional Information: MEDICARE WELLNESS VISIT Future Orders CBC - Routine, Once, 08/26/25 15:52:00 EST, Order for Today, [facility], Blood?? Lipid Panel - Routine, Once, 08/26/25 15:53:00 EST, Order for Today, [facility], Blood?? Comprehensive Metabolic Panel - Routine, Once, 08/26/25 15:53:00 EST, Order for Today, [facility], Blood?? Medications The list below reflects the information in our records and provided by you today along with any changes made during this visit. Please continue your medications until treatment is completed or stopped by your provider. If this is different from the information you have or there are other questions,please contact the prescribing provider. What How Much When Instructions Unchanged Acetaminophen (acetaminophen 500 mg oral tablet) 2 tab(s) Oral Every 6 hours Unchanged Amlodipine (amLODIPine 2.5 mg oral tablet) 1 tab(s) Oral Daily Unchanged Betamethasone Topical (betamethasone topical dipropionate 0.05% cream) See instructions Special Instructions: TOPICALLY 2 TIMES A DAY Ordering Physician: Hilary Diamond NP ?? Unchanged Cetirizine (cetirizine 10 mg oral tablet) 1 tab(s) Oral Daily Unchanged Famotidine (famotidine 20 mg oral tablet) Unchanged Finasteride (finasteride 5 mg oral tablet) 1 tab(s) Oral Daily Unchanged Hydrochlorothiazide-Irbesartan (hydrochlorothiazide-irbesartan 12.5 mg-300 mg oral tablet) 1 tab(s) Oral Daily Ordering Physician: Tracy John NP Unchanged Multivitamin Oral Daily Unchanged [place]-3 Polyunsaturated Fatty Acids (Fish Oil) take Oral Daily Unchanged Pravastatin (pravastatin 20 mg oral tablet) 1 tab(s) Oral Daily at Bedtime Duration: 90 Days Ordering Physician: Tracy John NP Unchanged Tamsulosin (Flomax 0.4 mg oral capsule) 1 capsule Oral Daily Special Instructions: (30 minutes after the same meal) ?? Test Performed Below is a partial list of the tests performed during your Visit. You may have had other tests and procedures not included in this list. Please discuss all test results with your provider. CBC?-- Results Pending -- Comprehensive Metabolic Panel?-- Results Pending -- Lipid Panel?-- Results Pending -- Medications and Immunizations Administered Medications Given During Visit No medications given during this visit.?? Allergies (NKA means No Known Allergies) NKA Common Emergency Awareness Tips IS IT A STROKE? Act FAST and Check for these signs: FACE Does the face look uneven? ARM Does one arm drift down? SPEECH Does their speech sound strange? TIME Call at any sign of stroke ?? Heart Attack Signs Chest discomfort: Most heart attacks involve discomfort in the center of the chest and lasts more than a few minutes, or goes away and comes back. It can feel like uncomfortable pressure, squeezing, fullness or pain. Discomfort in upper body: Symptoms can include pain or discomfort in one or both arms, back, neck, jaw or stomach. Shortness of breath: With or without discomfort. Other signs: Breaking out in a cold sweat, nausea, or lightheaded. Remember, MINUTES DO MATTER. If you experience any of these heart attack warning signs, call 05-25- to get immediate medical attention! ?? Smoking can increase your chances of developing chronic health problems and can cause harmful effects to other family members in your house. If you smoke, you are strongly encouraged to quit. Please call [facility] at [phone] or [phone] ([phone]) or log in to [email or web address] for referrals to smoking cessation programs. ?? The National Suicide Prevention Hotline is available 16/04 if you or someone you know needs to find a reason to keep living. By calling 2-275-665-[employer] (6277) you'll be connected to a skilled, trained counselor at a crisis center in your area. [facility] You can view and manage your care through the patient portal or by using a health care jaylen of your choosing. [employer] is a website that allows you to securely view your medical information including your hospital discharge summary, office visit summaries, medications and follow-up visits. You can also request appointments, renew medications, and request access to your medical information using a health care jaylen of your choosing, or just ask a question. You can enroll at [email or web address] or register during your next office visit. [facility], in keeping with [facility] guidance, no longer requires face masks for staff, patientsor visitors in most situations. Similiar to time spent indoors at other locations, there is the chance that you were exposed to repiratory viruses during your time with us (such as flu or COVID-19). If you develop symptoms concerning for a viral respiratory infection, please seek testing (and treatment if indicated) from your medical provider or home test kit. ?? Disclaimer: The information provided is of a general nature and is intended to be used in conjunction with the recommendations and advice of your health care practitioner. Every effort has been made to ensure that the information provided is accurate and complete at the time it is provided to you however, as your needs change, or, as new information becomes available, different or additional instructions may be required. ?? If you have questions, please consult with your primary care provider or pharmacist, as appropriate. This information is not intended to serve as substitution for assessment and evaluation by a qualified health care provider. If you do not have a primary care provider, you may find a [facility] provider by calling [facility] at [phone]. Patient Care team information Care Team Personnel Name: Emily Cai Position: [facility] Outreach Member Role: Lifetime Consulting Physician Name: Tracy John NP Position: [facility] PCO Associate Professional Member Role: PCP Address: [address] [place] [address] Telecom: Care Team Related Persons Name: ANDI LOWE Name: OPAL NEWTON Insurance Providers Guarantor name: ARIEL LOWE Health Plan Information #: 1 Payer: MEDICARE B Payer Identifier: Member Number: [id number] Group Number: Subscriber Identifier: [id number] Relationship to Subscriber: self Coverage Type: NA Coverage Verification Date: NA Telecom: NA Address: NA Health Plan Information #: 2 Payer: MEDEX SECONDARY ONLY Payer Identifier: NA Member Number: [id number] Group Number: NA Subscriber Identifier: [id number] Relationship to Subscriber: self Coverage Type: Medicare Other Coverage Verification Date: Telecom: Address:
--- OUTSIDE RECORDS SUMMARY | 2025-09-07 22:38 | XMS_ITS | Clinical Summary ---
Author Organization [facility] Address [address] [place] [address] Phone Care Team Providers Care Cpa Tax Name Role Phone Tracy John Primary Care Provider [phone] Allergies No known active allergies Social History [...] age to complete this topic Insurance MEDICARE [facility] Care Teams Cpa Tax Relationship Specialty Start Date End Date Alvaro Tracy [address] [place] [address] PCP - General 12/18/24
--- OUTSIDE RECORDS SUMMARY | 2025-09-07 22:38 | XMS_ITS | Clinical Summary ---
Author Organization [facility] Address [address] [place] [address] Phone Care Team Providers Care Supervisor Inspection Room Name Role Phone Unknown, Unknown Primary Care [...] [place] [id number] [employer] MEDEX SUPPLEMENT MEDICARE PART A & B [employer] MEDEX SUPPLEMENT MEDICARE PART A & B [employer] MEDEX SUPPLEMENT MEDICARE PART A & B [employer] MEDEX SUPPLEMENT MEDICARE PART A & B [employer] MEDEX SUPPLEMENT MEDICARE PART A & B [employer] MEDEX SUPPLEMENT MEDICARE PART A & B [employer] MEDEX SUPPLEMENT MEDICARE PART A & B [employer] MEDEX SUPPLEMENT MEDICARE PART A & B [employer] MEDEX SUPPLEMENT Care Teams Supervisor Inspection Room Relationship Specialty Start Date End Date Unknown, Unknown, PCP - General 02/14/16 Additional Source Comments The information contained in this document represents components of the legal health record. It is not the complete legal health record.[facility]
== END 2025-09-07 16:27 | disposition home or self-care (01) ==
LOC: HO.HMGAL 16:27
PROVIDERS: PCP Nurse Practitioner Family; Visit Provider Registered Nurse Emergency
DX: J30.89 Other allergic rhinitis (principal)
CPT/HCPCS: 95117; 95165

== ENCOUNTER 2025-09-14 15:51 | Outpatient (AMB) | payer MEDICARE, SELFPAY ==
--- OUTSIDE RECORDS SUMMARY | 2025-09-12 23:59 | XMS_ITS | Continuity of Care Document ---
Author Organization [facility] Adult Address [address] [place] [address]- Care Team Providers Care Dross Skimmer Name Role Phone Tracy John NP Primary Care Physician [phone] [place] [facility] [place]): 08/13/25 - 09/12/25 [facility] Adult [address] [place] [address] Encounter Type: Triage Allergies, Adverse Reactions, Alerts No Known Allergies [...] vaccine, inactivated 7 06/09/09 Gi nicholas SARS-CoV-2(COVID-19)mRNA-LNP vac([id number]) 07/16/25 Recorded SARS-CoV-2(COVID-19)mRNA-LNP vac([id number]) 06/02/24 Recorded SARS-CoV-2(COVID-19)mRNA-LNP vac([id number]) 12/03/23 Recorded SARS-CoV-2(COVID-19)mRNA-LNP vac([id number]) 06/30/23 Recorded RSV vaccine preF3, recombinant 07/07/23 Recorded [id number] 12y+ bivalent booster vax 8 06/27/22 Recorded [...] diphtheria-tetanus toxoids (DT) 09/12/00 Given 1Result Comment: [facility] [phone] 2Result Comment: [08/24/2016] [facility] 4Result Comment: [[facility]/17/2015[facility] 5Admin Note: pharmacy 6Admin Note: VIS SHEET GIVEN 05/03/2010 7Admin Note: vis 05/04/09 8Result Comment: administered at [facility] 9Result Comment: Vishal 10Result Comment: [11/16/2015] [facility] 11[facility] Medications acetaminophen 500 mg oral tablet [...] 1 Refills, Maintenance, 01/26/25 9:37:00 PM EDT, [facility] STORE [address]7812, 90, TAKE 1 TABLET BY MOUTH EVERY [...] 7:48:00 AM EST, Route to Pharmacy Electronically, [facility]/pharmacy #[id number], 169, cm, 12/03/24 10:55:00 EDT, Height Start Date: 08/14/25 Stop Date: 11/12/25 Status: Ordered Medication Dispense Status: Completed Quantity: 90.0 Unit: tablet Total Allowed Fills: 1 Fills Dispensed: 0 Problem List Condition Confirmation [...] cm2 2Per chart review meets GFR criteria Patient Care team information Care Team Personnel Name: Emiyl Cai Position: [facility] Outreach Member Role: Lifetime Consulting Physician Name: Tracy John NP Position: [facility] PCO Associate Professional Member Role: PCP Address: [address] [place] [address] Telecom: Care Team Related Persons Name: ANDI LOWE Name: OPAL NEWTON Insurance Providers Guarantor name: ARIEL [facility] Information #: 1 Payer: MEDICARE B Payer Identifier: NA Member Number: [id number] Group Number: DADA Subscriber Identifier: DADA Relationship to Subscriber: self Coverage Type: NA Coverage Verification Date: NA Telecom: NA Address: [facility] Plan Information #: 2 Payer: MEDEX SECONDARY ONLY Payer Identifier: DADA Member Number: [id number] Group Number: DADA Subscriber Identifier: DADA Relationship to Subscriber: self Coverage Type: Medicare Other Coverage Verification Date: DADA Telecom: NA Address:
--- OUTSIDE RECORDS SUMMARY | 2025-09-14 18:40 | XMS_ITS | Clinical Summary ---
Author Organization [facility] Address [address] [place] [address] Phone Care Team Providers Care Manager Shift Name Role Phone Tracy John Primary Care Provider [phone] Allergies No known active allergies Social History [...] age to complete this topic Insurance MEDICARE [facility] Care Teams Manager Shift Relationship Specialty Start Date End Date Alvaro Tracy [address] [place] [address] PCP - General 12/18/24
--- OUTSIDE RECORDS SUMMARY | 2025-09-14 18:40 | XMS_ITS | Encounter Summary ---
Author Organization [facility] Address [address] [facility] [address] [place] [address] Phone Care Team Providers Care Personnel Arbitrator Name Role Phone Tracy John AGRICULTURAL ENGINEERING TECHNOLOGIST Primary Care Provider [phone] Encounter Details Date Type Department Care Team (Late Contact Info) Description 01/09/2023 Documentation Only [facility] [address] [facility] [address] [place] [phone] [place], [place] Social History Tobacco Use Types Packs/Day [...] [facility] [address] [facility] [address] [place] [phone] Pepper Nielsen ARNP [address] [phone] documented as of this encounter Visit Diagnoses Not on filedocumented in this encounter Care Teams Personnel Arbitrator Relationship Specialty Start Date End Date Tracy John NP [address] [place] [address] PCP - General Nurse Practitioner 12/05/23 documented as of this encounter
--- OUTSIDE RECORDS SUMMARY | 2025-09-14 18:40 | XMS_ITS | Clinical Summary ---
Author Organization [facility] Address [address] [place] [address] Phone Care Team Providers Care Software Design Analyst Name Role Phone Unknown, Unknown Primary Care [...] [place] [id number] [employer]OSS MEDEX SUPPLEMENT MEDICARE PART A & B Member Subscriber Plan / Payer ( fective 2010-Present) Name:Trevon Laguna Member ID:[id number] Relation to Subscriber:Self Name:Trevon Laguna Subscriber ID:[id number] Payer ID:[id number] Group ID:Not on file Type:Medicare Address: [facility] [employer] [address] [place] [address] [employer] MEDEX SUPPLEMENT MEDICARE PART A & B Member Subscriber Plan / Payer ( fective 2010-Present) Name:Trevon Laguna Member ID:[id number] Relation to Subscriber:Self Name:Trevon Laguna Subscriber ID:[id number] Payer ID:[id number] Group ID:Not on file Type:Medicare Address: [facility] [address] [place] [phone] [employer] MEDEX SUPPLEMENT MEDICARE PART A & B [employer] MEDEX SUPPLEMENT MEDICARE PART A & B Member Subscriber Plan / Payer (Ef fective 2010-Present) Name:Trevon Laguna Member ID:[id number] Relation to Subscriber:Self Name:Trevon Laguna Subscriber ID:[id number] Payer ID:[id number] Group ID:Not on file Type:Medicare Address: [facility] [address] [place] [phone] [employer] MEDEX SUPPLEMENT MEDICARE PART A & B [employer] [place] MEDEX SUPPLEMENT MEDICARE PART A & B [employer] MEDEX SUPPLEMENT MEDICARE PART A & B Member Subscriber Plan / Payer ( fective 2010-Present) Name:Trevon Laguna Member ID:[id number] Relation to Subscriber:Self Name:Trevon Laguna Subscriber ID:[id number] Payer ID:[id number] Group ID:Not on file Type:Medicare Address: [facility] [address] [place], [place] [phone] [employer] MEDEX SUPPLEMENT MEDICARE PART A & B [employer] MEDEX SUPPLEMENT Care Teams Software Design Analyst Relationship Specialty Start Date End Date Unknown, Unknown, PCP - General 02/14/16 Additional Source Comments The information contained in this document represents components of the legal health record. It is not the complete legal health record.[facility]
--- OUTSIDE RECORDS SUMMARY | 2025-09-14 18:40 | XMS_ITS | Encounter Summary ---
Author Organization [facility] Address [address] [facility] [address] [place] [address] Phone Care Team Providers Care Conservation Scientist Name Role Phone Tracy John SENIOR BUYER PLANNER Primary Care Provider [phone] Encounter Details Date Type Department Care Team (Late Contact Info) Description 03/24/2021 Orders Only [facility] [address] [facility] [address] [place] [phone] Caren Santos MD Stage 3a chronic kidney [...] Office Visit [facility] [address] [facility] [address] [place] [phone] Pepper Nielsen ARNP [address] [phone] documented as of this encounter Visit Diagnoses Diagnosis Stage 3a chronic kidney disease (HCC) Hypertensive disorder Hypophosphatemia Cyst of kidney documented in this encounter Care Teams Conservation Scientist Relationship Specialty Start Date End Date Tracy John NP [address] [place] [address] PCP - General Nurse Practitioner 12/05/23 documented as of this encounter
--- OUTSIDE RECORDS SUMMARY | 2025-09-14 18:40 | XMS_ITS | Clinical Summary ---
Author Organization [facility] Address [address] [place] [id number] Care Team Providers Care Roll Repairer Name Role Phone Tracy John NP Primary Care Provider [phone] Tracy John NP Unavailable [phone] Allergies No known active allergies Medications omega-3 fatty acids 1,000 mg cap -- Active pravastatin (PRAVACHOL) 20 MG tablet 1 tablet (20 mg total) daily. Active acetaminophen (TYLENOL) 500 MG capsule Take 2 capsules (1,000 mg total) by mouth. every 5 hours as needed Active irbesartan-hydr oCHLOROthiazide (AVALIDE) 300-12.5 mg per tablet Take 1 tablet by mouth daily. Active amLODIPine (NORVASC) 10 MG tablet Take 1 tablet (10 mg total) by mouth daily. Active famotidine (PEPCID) 20 MG tablet TAKE 1 TABLET (20 MG TOTAL) BY MOUTH IN THE MORNING AND IN THE EVENING Active finasteride (PROSCAR) 5 mg tablet Take 1 tablet (5 mg total) by mouth daily. 5 Active erythromycin (ILOTYCIN) 5 mg/gram (0.5 %) ophthalmic ointment Administer 0.5 inches to both eyes at bedtime. 3.5 g 6 5 Active erythromycin (ILOTYCIN) 5 mg/gram (0.5 %) ophthalmic ointment Apply 1/4 inch inside lower lid to affected eye 3.5 g 6 5 Active Active Problems Problem Noted Date Diagnosed Date Amblyopia of right eye 05/14/2024 Assessment & Plan (05/21/2025 12:58 PM EDT): Long standing and stable no rx indicated. Discuss Assessment & Plan (05/14/2024 1:44 PM EDT): Long standing and stable no rx indicated. Discuss Mixed type age-related cataract, both eyes 05/14 Assessment & Plan (05/21/2025 1:35 PM EDT): Mild OU with good va but symptomatic glare. Disuss rx with surgery. Consider antiglare coating on glasses. Assessment & Plan (05/14/2024 1:33 PM EDT): Mild OU with good va will follow for now. PVD (posterior vitreous detachment), bilateral 0 05/14/2024 Assessment & Plan (05/21/2025 12:59 PM EDT): Stable OU, no holes,tears heme Assessment & Plan (05/14/2024 1:34 PM EDT): Stable OU, no holes,tears heme Keratitis sicca, bilateral 05/14/2024 Assessment & Plan (05/21/2025 12:58 PM EDT): Rx with tears and erythromycin oint Assessment & Plan (05/14/2024 1:33 PM EDT): Rx with tears and erythromycin oint Nonexudative age-related mac ular degeneration, bilateral, early dry stage 05/14/2024 Assessment & Plan (05/21/2025 2:08 PM EDT): ? Early changes of ARMD, not definitive and OCT with no drusen. will continue to follow. Assessment & Plan (05/14/2024 1:45 PM EDT): ? Early changes of ARMD, not definitive will continue to follow. Social History Tobacco Use Types Packs/Day Years Used Date Smoking Tobacco: Never Assessed Sex and Gender Information Value Date Recorded Sex Assigned at Male 05/09/2024 9:47 AM EDT Legal Sex Male 2:24 PM EST Gender Identity Male 05/09/2024 9:47 AM EDT Sexual Orientation Not on file Plan of Treatment Upcoming Encounters Date Type Department Care Team (Late st Contact Info) Description 06/10/2026 1:00 PM EDT Office Visit [facility] [place] [facility] [place] [address] Stas Armstrong MD [address] [facility] [place] [address] In Person with Physician Health Maintenance Due Date Last Done Comments Blood Pressure 1945 Depression Screening 1957 Medicare Initial AWV [id number] 03/24/2014 COVID-19 Vaccine ( season) 2025 06/02/2024, 12/03/2023, 06/30/2023, Additional history exists Influenza Vaccine (#1) 2025 , 06/02/2024, 06/30/2023, Additional history exists DTaP,Tdap,and Td Vaccines (3 - Td or Tdap) 11/16/2025 11/16/2015, 09/12/2000 Pneumococcal Vaccine: 50+ Years Completed 03/17/2015, 11/22/2010 Zoster Vaccine Completed 07/08/2019, 02/11/2018 Meningococcal B Vaccines Aged Out No longer eligible based on patient's age to complete this topic Meningococcal Vaccines Aged Out No lo nger eligible based on patient's age to complete this topic Insurance MEDICARE MEDEX MEDICARE MEDEX Care Teams Roll Repairer Relationship Specialty Start Date End Date Tracy John NP [address] [facility] [address] [place] [address] PCP - General Nurse Practitioner 04/24/24 Tracy John NP [address] [place] [id number] PCP - Insurance Assigned PCP Nurse Practitioner 04/24/24
--- OUTSIDE RECORDS SUMMARY | 2025-09-14 18:40 | XMS_ITS | Clinical Summary ---
Author Organization [facility] Address [address] [address] Phone Care Team Providers Care Facilities Maintenance Manager Name Role Phone AlvaroTracy cooper ROLLER VARNISHER Primary Care Provider [phone] Allergies No known active allergies Medications Multiple [...] each day 90 tablet 3 5 12/09/19 Active Active Problems Problem Noted Date Diagnosed Date Chronic headache disorder 04/20/2022 Dyspepsia 04/20/2022 Hypophosphatemia 11/07/2020 Cyst of kidney 11/03/2020 Hypertension 11/03/2020 Aortic valve stenosis 11/03/2020 Hyperlipidemia 06/18/2014 Essential hypertension 12/30/2012 Stage 3a chronic kidney disease 09/01/2010 Overview (12/07/2022): Per chart review meets GFR criteria Benign prostatic hyperplasia 12/04/2008 Immunizations Immunization Administration Dates Next Due DT [...] Office Visit [facility] [address] [address] Pepper Nielsen ARNP [address] [address] Health Maintenance Due Date Last Done Comments Influenza Vaccine (#1) 2025 2, 06/14/2021, 05/15/2020, Additional history exists Pneumococcal Vaccine: 50+ Years Completed 03/17/2015, 11/22/2010 Pneumococcal Vaccine: Peds (0 to 5 Years) and At-Risk Patients (6 to 49 Years) Discontinued 03/17/2015, 11/22/2010 Hepatitis B Vaccine Aged Out No longe r eligible based on patient's age to complete this topic Insurance [facility] Medicare [facility] Medicare Care Teams Facilities Maintenance Manager Relationship Specialty Start Date End Date [facility] [place] [facility] [place] [address] PCP - General Nurse Practitioner 12/05/23
== END 2025-09-14 15:51 | disposition home or self-care (01) ==
LOC: HO.HMGAL 15:51
PROVIDERS: PCP Nurse Practitioner Family; Visit Provider Registered Nurse Emergency
DX: J30.89 Other allergic rhinitis (principal)
CPT/HCPCS: 95117; 95165